=== PATIENT | male | born 1960 | race Caucasian/White ===

== ENCOUNTER 2017-06-04 12:05 | Inpatient (IN) ==
[2017-06-04 14:09] LABS: Basophils # 0.1 10*3/uL (0.0-0.2); Basophils % 0.7 % (0.0-0.8); Eosinophils # 0.2 10*3/uL (0.0-0.87); Eosinophils % 2.2 % (0.00-10.9); Hematocrit 48.2 VOL% (42.0-52.0); Hemoglobin 16.3 GM/DL (14.0-18.0); Immature Granulocytes % 1.2 %; Immature Granulocytes Absolute 0.12 #; Lymphocytes # 1.5 10*3/uL (1.4-4.0); Lymphocytes % 14.7 % (21.2-54.2); Mean Corpuscular HGB Conc 33.8 GM/DL (32-36); Mean Corpuscular Hemoglobin 32 PG (27-34); Mean Corpuscular Volume 94.7 FL (87-102); Mean Platelet Volume 10.6 FL (9.6-12.0); Monocytes # 0.7 10*3/uL (0.11-0.8); Monocytes % 7.2 % (1.7-12.7); Neutrophils # 7.3 10*3/uL (1.4-7.4); Platelet Count 200 T/CUMM (130-400); Red Blood Count 5.09 MC/CUMM (3.8-5.5); Red Cell Distribution Width 14.3 % (9.3-17.3); White Blood Count 9.9 T/CUMM (4-12)
[2017-06-04 14:16] LABS: INR 0.9; PT Patient Result 9.9 SECS; Partial Thromboplastin Time 24.2 SECS (0-40)
[2017-06-04 14:25] LABS: Alanine Aminotransferase 48 U/L (16-61); Albumin 3.4 G/DL (3.4-5.0); Alkaline Phosphatase 90 U/L (45-117); Aspartate Amino Transferase 35 U/L (0-37); Bilirubin,Total < 0.39 MG/DL (0.2-1.0); Blood Urea Nitrogen 15 MG/DL (7-18); Calcium 8.9 MG/DL (8.5-10.1); Glucose 107 MG/DL (74-106); Magnesium 2.4 MG/DL (1.8-2.4); Osmolality,Calculated 277.5 MOS/KG (273-304); Potassium 4.5 MMOL/L (3.5-5.1); Sodium 139 MMOL/L (136-145); Total Protein 6.9 G/DL (6.4-8.3); Troponin I Only 0.034 NG/ML (0.00-0.045)
[2017-06-04] MEDS ORDERED: FUROSEMIDE 40 MG/4 ML VIAL IV STA (15:10)
[2017-06-04] MEDS ORDERED: FUROSEMIDE 100 MG/10 ML VIAL ONE (15:12)
[2017-06-04] MEDS ORDERED: NICOTINE 21 MG/24 HR PATCH TRANSDERM PRN (15:19)
[2017-06-04] MEDS ORDERED: guaiFENesin/DM ER 600-30 MG TABLET PO PRN (15:19)
[2017-06-04] MEDS ORDERED: NITROGLYCERIN SL 0.4 MG TABLET SL PRN (15:24)
[2017-06-04] MEDS ORDERED: INFLUENZA VIRUS VACCINE 0.5 ML SYRINGE IM ONE (17:33)
[2017-06-04] MEDS ORDERED: PNEUMOCOCCAL VACCINE (23 VALENT) 0.5 ML VIAL IM ONE (17:33)
[2017-06-04] MEDS: ENOXAPARIN 40 MG/0.4 ML SYRINGE SUBCUT SCH (17:42)
[2017-06-04] MEDS: FUROSEMIDE 40 MG/4 ML VIAL IV SCH (21:48)
[2017-06-05] MEDS: ONDANSETRON 4 MG/2 ML VIAL IV PRN ×2 (01:39→07:10)
[2017-06-05 05:55] LABS: Calcium 8.4 MG/DL (8.5-10.1); Magnesium 2.3 MG/DL (1.8-2.4); Osmolality,Calculated 276.8 MOS/KG (273-304); Potassium 3.9 MMOL/L (3.5-5.1)
[2017-06-05] MEDS: metOLazone 5 MG TABLET PO SCH (08:42)
[2017-06-05] MEDS: SIMVASTATIN 20 MG TABLET PO SCH (08:42)
[2017-06-05] MEDS: FUROSEMIDE 40 MG/4 ML VIAL IV SCH ×2 (08:42→21:50)
[2017-06-05] MEDS: ASPIRIN EC 81 MG TABLET PO SCH (08:42)
[2017-06-05] MEDS: METOPROLOL SUCCINATE XL 50 MG TABLET PO SCH (08:42)
[2017-06-05] MEDS: ACETAMINOPHEN 325 MG TABLET PO PRN ×2 (08:42→23:54)
[2017-06-05] MEDS: MULTIVITAMIN (CENTRUM) TABLET PO SCH (08:42)
[2017-06-05] MEDS: predniSONE 20 MG TABLET PO SCH (08:42)
[2017-06-05] MEDS ORDERED: LISINOPRIL 5 MG TABLET PO SCH (09:00)
[2017-06-05] MEDS: ENOXAPARIN 40 MG/0.4 ML SYRINGE SUBCUT SCH (14:47)
[2017-06-05] MEDS: ALBUTEROL 2.5 MG/3 ML NEB RESP TX PRN ×2 (14:52→23:56)
[2017-06-06] MEDS: ONDANSETRON 4 MG/2 ML VIAL IV PRN (02:12)
[2017-06-06] MEDS: SIMVASTATIN 20 MG TABLET PO SCH (09:45)
[2017-06-06] MEDS: ASPIRIN EC 81 MG TABLET PO SCH (09:45)
[2017-06-06] MEDS: MULTIVITAMIN (CENTRUM) TABLET PO SCH (09:45)
[2017-06-06] MEDS: predniSONE 20 MG TABLET PO SCH (09:45)
[2017-06-06] MEDS: METOPROLOL SUCCINATE XL 50 MG TABLET PO SCH (09:45)
[2017-06-06] MEDS: metOLazone 5 MG TABLET PO SCH (09:46)
[2017-06-06] MEDS: FUROSEMIDE 40 MG/4 ML VIAL IV SCH (09:46)
[2017-06-06] MEDS: LISINOPRIL 5 MG TABLET PO SCH ×2 (09:46→23:09)
[2017-06-06] MEDS: ENOXAPARIN 40 MG/0.4 ML SYRINGE SUBCUT SCH (16:31)
[2017-06-06] MEDS ORDERED: FUROSEMIDE 40 MG/4 ML VIAL IV SCH (23:30)
[2017-06-07] MEDS: FUROSEMIDE 40 MG/4 ML VIAL IV SCH ×3 (00:07→15:57)
[2017-06-07 06:20] LABS: Calcium 8.4 MG/DL (8.5-10.1); Osmolality,Calculated 269.7 MOS/KG (273-304); Potassium 3.9 MMOL/L (3.5-5.1)
[2017-06-07] MEDS: LISINOPRIL 5 MG TABLET PO SCH ×2 (08:53→21:29)
[2017-06-07] MEDS: METOPROLOL SUCCINATE XL 50 MG TABLET PO SCH (08:53)
[2017-06-07] MEDS: ASPIRIN EC 81 MG TABLET PO SCH (08:53)
[2017-06-07] MEDS: SIMVASTATIN 20 MG TABLET PO SCH (08:59)
[2017-06-07] MEDS: MULTIVITAMIN (CENTRUM) TABLET PO SCH (08:59)
[2017-06-07] MEDS: predniSONE 20 MG TABLET PO SCH (08:59)
[2017-06-07] MEDS ORDERED: metOLazone 5 MG TABLET PO SCH (09:00)
[2017-06-07] MEDS: ENOXAPARIN 40 MG/0.4 ML SYRINGE SUBCUT SCH (15:58)
[2017-06-08] MEDS ORDERED: ACETAMINOPHEN/diphenhydrAMINE 500-25 MG TABLET PO PRN (00:27)
[2017-06-08 05:21] LABS: Calcium 8.7 MG/DL (8.5-10.1); Osmolality,Calculated 274.4 MOS/KG (273-304); Potassium 3.9 MMOL/L (3.5-5.1)
[2017-06-08] MEDS ORDERED: BUMETANIDE 1 MG TABLET PO SCH (08:00)
[2017-06-08] MEDS: METOPROLOL SUCCINATE XL 50 MG TABLET PO SCH (08:05)
[2017-06-08] MEDS: MULTIVITAMIN (CENTRUM) TABLET PO SCH (08:05)
[2017-06-08] MEDS: predniSONE 20 MG TABLET PO SCH (08:05)
[2017-06-08] MEDS: ASPIRIN EC 81 MG TABLET PO SCH (08:06)
[2017-06-08] MEDS: LISINOPRIL 5 MG TABLET PO SCH (08:06)
[2017-06-08] MEDS: SIMVASTATIN 20 MG TABLET PO SCH (08:06)
[2017-06-08] MEDS ORDERED: metOLazone 5 MG TABLET PO SCH (09:00)
[2017-06-08 11:40] VITALS: BP 110/70
== END 2017-06-08 11:14 | disposition home or self-care (01) | DRG 190 ==
LOC: N.ED 12:05 → N.EDINP 14:43 → N.5E 16:52
PROVIDERS: ADMIT Internal Medicine Geriatric Medicine; ATTEND Internal Medicine Geriatric Medicine

== ENCOUNTER 2018-05-24 08:29 | Inpatient (IN) ==
[2018-05-24] MEDS ORDERED: ASPIRIN 325 MG TABLET PO STA (09:14)
[2018-05-24] MEDS ORDERED: ALBUTEROL 2.5 MG/3 ML NEB RESP TX STA ×2 (09:15→12:01)
[2018-05-24 09:20] LABS: Basophils % 0.4 % (0.0-0.8); Eosinophils % 0.3 % (0.00-10.9); Hematocrit 51.8 VOL% (42.0-52.0); Hemoglobin 16.5 GM/DL (14.0-18.0); Immature Granulocytes % 0.5 %; Immature Granulocytes Absolute 0.05 #; Lymphocytes # 0.9 10*3/uL (1.4-4.0); Lymphocytes % 9.5 % (21.2-54.2); Mean Corpuscular HGB Conc 31.9 GM/DL (32-36); Mean Corpuscular Hemoglobin 31 PG (27-34); Mean Corpuscular Volume 98.5 FL (87-102); Mean Platelet Volume 10.6 FL (9.6-12.0); Monocytes % 9.8 % (1.7-12.7); NRBC # 0.02 10*3/uL; Neutrophils # 7.8 10*3/uL (1.4-7.4); Neutrophils % 79.5 % (38.7-73.9); Platelet Count 175 T/CUMM (130-400); Red Blood Count 5.26 MC/CUMM (3.8-5.5); Red Cell Distribution Width 15.8 % (9.3-17.3); White Blood Count 9.9 T/CUMM (4-12)
[2018-05-24 09:35] LABS: Albumin 3.5 G/DL (3.4-5.0); Bilirubin,Total 0.5 MG/DL (0.2-1.0); Calcium 9.5 MG/DL (8.5-10.1); Osmolality,Calculated 283.4 MOS/KG (273-304); Potassium 3.7 MMOL/L (3.5-5.1); Total Protein 7.5 G/DL (6.4-8.3)
[2018-05-24] MEDS: NITROGLYCERIN SL 0.4 MG TABLET SL PRN ×2 (11:41→12:18)
[2018-05-24] MEDS ORDERED: NITROGLYCERIN SL 0.4 MG TABLET SL PRN (13:15)
[2018-05-24] MEDS ORDERED: ONDANSETRON 4 MG/2 ML VIAL IV PRN (13:19)
[2018-05-24] MEDS ORDERED: predniSONE 20 MG TABLET PO SCH (13:30)
[2018-05-24] MEDS: ALBUTEROL/IPRATROPIUM 3 ML NEB RESP TX SCH ×3 (14:07→22:43)
[2018-05-24] MEDS ORDERED: INFLUENZA VIRUS VACCINE 0.5 ML SYRINGE IM ONE (16:26)
[2018-05-24] MEDS: ENOXAPARIN 40 MG/0.4 ML SYRINGE SUBCUT SCH (16:27)
[2018-05-24] MEDS: LEVOFLOXACIN INJ 500 MG in PREMIX 1 EACH IV SCH (16:27)
[2018-05-24] MEDS: FUROSEMIDE 40 MG TABLET PO SCH (16:27)
[2018-05-24] MEDS: ALBUTEROL 0.4 MG/ML 30 ML/BOTTLE PO SCH ×2 (18:43→21:11)
[2018-05-24] MEDS: ACETAMINOPHEN 325 MG TABLET PO PRN (21:10)
[2018-05-24] MEDS: LISINOPRIL 5 MG TABLET PO SCH (21:10)
[2018-05-24] MEDS: MELATONIN 3 MG TABLET PO SCH (21:12)
[2018-05-25] MEDS: ALBUTEROL 0.4 MG/ML 30 ML/BOTTLE PO SCH ×6 (01:03→21:05)
[2018-05-25] MEDS: ALBUTEROL/IPRATROPIUM 3 ML NEB RESP TX SCH ×6 (02:32→23:15)
[2018-05-25 05:35] LABS: Basophils % 0.5 % (0.0-0.8); Eosinophils # 0.1 10*3/uL (0.0-0.87); Hematocrit 51.4 VOL% (42.0-52.0); Hemoglobin 15.8 GM/DL (14.0-18.0); Immature Granulocytes % 0.6 %; Immature Granulocytes Absolute 0.05 #; Lymphocytes # 1.3 10*3/uL (1.4-4.0); Lymphocytes % 14.6 % (21.2-54.2); Mean Corpuscular HGB Conc 30.7 GM/DL (32-36); Mean Corpuscular Hemoglobin 31 PG (27-34); Mean Platelet Volume 10.3 FL (9.6-12.0); Monocytes # 1.2 10*3/uL (0.11-0.8); Monocytes % 13.2 % (1.7-12.7); Neutrophils # 6.2 10*3/uL (1.4-7.4); Neutrophils % 70.1 % (38.7-73.9); Platelet Count 147 T/CUMM (130-400); Red Blood Count 5.04 MC/CUMM (3.8-5.5); Red Cell Distribution Width 15.9 % (9.3-17.3); White Blood Count 8.8 T/CUMM (4-12)
[2018-05-25] MEDS: ACETAMINOPHEN 325 MG TABLET PO PRN ×2 (05:51→12:09)
[2018-05-25 06:01] LABS: Calcium 8.4 MG/DL (8.5-10.1); Osmolality,Calculated 283.7 MOS/KG (273-304)
[2018-05-25] MEDS: PANTOPRAZOLE 40 MG TABLET PO SCH (08:50)
[2018-05-25] MEDS: POTASSIUM CHLORIDE 20 MEQ TABLET PO SCH (08:50)
[2018-05-25] MEDS: ASPIRIN EC 81 MG TABLET PO SCH (08:50)
[2018-05-25] MEDS: FUROSEMIDE 40 MG TABLET PO SCH ×2 (08:50→15:57)
[2018-05-25] MEDS: LISINOPRIL 5 MG TABLET PO SCH ×2 (08:50→21:05)
[2018-05-25] MEDS: METOPROLOL SUCCINATE XL 50 MG TABLET PO SCH (08:50)
[2018-05-25] MEDS: metOLazone 5 MG TABLET PO SCH (08:51)
[2018-05-25] MEDS: NICOTINE 14 MG/24 HR PATCH TRANSDERM SCH (08:51)
[2018-05-25] MEDS: ROSUVASTATIN 20 MG TABLET PO SCH (08:51)
[2018-05-25] MEDS ORDERED: SIMVASTATIN 20 MG TABLET PO SCH (09:00)
[2018-05-25] MEDS ORDERED: POTASSIUM CHLORIDE 20 MEQ TABLET PO ONE (09:10)
[2018-05-25] MEDS: methylPREDNISolone SOD SUC 40 MG/1 ML VIAL IV SCH ×2 (11:59→23:28)
[2018-05-25 12:11] LABS: ABG Base Excess 9.1 MMOL/L (-2.5-2.5); ABG HCO3 32.7 MMOL/L (20-26); ABG Oxygen Saturation 90.4 % (95-100); ABG PH 7.351 (7.35-7.45); ABG PO2 62.9 MM HG (80-95); ABG TCO2 32.9 MMOL/L (23-27)
[2018-05-25 12:16] LABS: ABG PCO2 70.2 MM HG (35-48)
[2018-05-25] MEDS: ENOXAPARIN 40 MG/0.4 ML SYRINGE SUBCUT SCH (13:11)
[2018-05-25] MEDS: LEVOFLOXACIN INJ 500 MG in PREMIX 1 EACH IV SCH (13:14)
[2018-05-25] MEDS: MELATONIN 3 MG TABLET PO SCH (21:05)
[2018-05-26] MEDS: ALBUTEROL 0.4 MG/ML 30 ML/BOTTLE PO SCH ×6 (01:50→21:15)
[2018-05-26] MEDS: ALBUTEROL/IPRATROPIUM 3 ML NEB RESP TX SCH ×6 (02:35→23:41)
[2018-05-26] MEDS: ASPIRIN EC 81 MG TABLET PO SCH (09:13)
[2018-05-26] MEDS: POTASSIUM CHLORIDE 20 MEQ TABLET PO SCH ×2 (09:13→21:16)
[2018-05-26] MEDS: FUROSEMIDE 40 MG TABLET PO SCH ×2 (09:13→15:17)
[2018-05-26] MEDS: ROSUVASTATIN 20 MG TABLET PO SCH (09:13)
[2018-05-26] MEDS: LISINOPRIL 5 MG TABLET PO SCH ×2 (09:14→21:15)
[2018-05-26] MEDS: metOLazone 5 MG TABLET PO SCH (09:14)
[2018-05-26] MEDS: NICOTINE 14 MG/24 HR PATCH TRANSDERM SCH (09:14)
[2018-05-26] MEDS: METOPROLOL SUCCINATE XL 50 MG TABLET PO SCH (09:14)
[2018-05-26] MEDS: PANTOPRAZOLE 40 MG TABLET PO SCH (09:16)
[2018-05-26] MEDS ORDERED: methylPREDNISolone SOD SUC 40 MG/1 ML VIAL IV SCH (11:00)
[2018-05-26] MEDS: ENOXAPARIN 40 MG/0.4 ML SYRINGE SUBCUT SCH (13:43)
[2018-05-26] MEDS: LEVOFLOXACIN INJ 500 MG in PREMIX 1 EACH IV SCH (13:43)
[2018-05-26] MEDS: MELATONIN 3 MG TABLET PO SCH (21:16)
[2018-05-27 02:25] LABS: ABG Base Excess 9.3 MMOL/L (-2.5-2.5); ABG Oxygen Saturation 61.6 % (95-100); ABG PH 7.296 (7.35-7.45); ABG TCO2 35.7 MMOL/L (23-27)
[2018-05-27 02:28] LABS: ABG PCO2 84.4 MM HG (35-48); ABG PO2 35.8 MM HG (80-95)
[2018-05-27 02:43] LABS: Calcium 7.7 MG/DL (8.5-10.1); Potassium 3.5 MMOL/L (3.5-5.1)
[2018-05-27] MEDS ORDERED: CLORAZEPATE 7.5 MG TABLET PO ONE (03:17)
[2018-05-27] MEDS ORDERED: ZIPRASIDONE 20 MG/1 ML VIAL IM ONE (03:23)
[2018-05-27] MEDS ORDERED: ETOMIDATE 20 MG/10 ML VIAL IV ONE ×4 (03:43→04:54)
[2018-05-27] MEDS ORDERED: SUCCINYLCHOLINE 200 MG/10 ML VIAL ONE (03:44)
[2018-05-27] MEDS ORDERED: VECURONIUM 10 MG VIAL IV ONE ×3 (03:44→06:10)
[2018-05-27 03:46] LABS: Basophils % 0.1 % (0.0-0.8); Eosinophils % 0.1 % (0.00-10.9); Hematocrit 47.4 VOL% (42.0-52.0); Hemoglobin 14.9 GM/DL (14.0-18.0); Immature Granulocytes % 0.8 %; Immature Granulocytes Absolute 0.11 #; Lymphocytes # 1.8 10*3/uL (1.4-4.0); Lymphocytes % 12.7 % (21.2-54.2); Mean Corpuscular HGB Conc 31.4 GM/DL (32-36); Mean Corpuscular Hemoglobin 32 PG (27-34); Mean Corpuscular Volume 101.9 FL (87-102); Mean Platelet Volume 11.4 FL (9.6-12.0); Monocytes # 1.9 10*3/uL (0.11-0.8); Monocytes % 13.4 % (1.7-12.7); Neutrophils # 10.2 10*3/uL (1.4-7.4); Neutrophils % 72.9 % (38.7-73.9); Platelet Count 151 T/CUMM (130-400); Red Blood Count 4.65 MC/CUMM (3.8-5.5)
[2018-05-27] MEDS ORDERED: PROPOFOL 200 MG/20 ML VIAL IV ONE (04:08)
[2018-05-27] MEDS ORDERED: PROPOFOL 1,000 MG/100 ML BOTTLE IV ONE (04:09)
[2018-05-27 04:10] LABS: Calcium 8.1 MG/DL (8.5-10.1); Osmolality,Calculated 277.2 MOS/KG (273-304); Potassium 3.8 MMOL/L (3.5-5.1)
[2018-05-27] MEDS: PROPOFOL 1,000 MG/100 ML BOTTLE IV SCH ×2 (04:30→19:04)
[2018-05-27] MEDS: ALBUTEROL/IPRATROPIUM 3 ML NEB RESP TX SCH ×4 (04:36→19:17)
[2018-05-27] MEDS ORDERED: MIDAZOLAM 100 MG in SODIUM CHLORIDE 0.9% 80 ML IV PRN (05:23)
[2018-05-27 05:37] LABS: ABG Base Excess 7.2 MMOL/L (-2.5-2.5); ABG HCO3 30.9 MMOL/L (20-26); ABG Oxygen Saturation 92.7 % (95-100); ABG PH 7.213 (7.35-7.45); ABG TCO2 36.4 MMOL/L (23-27); Pt O2 Delivery Device Ventilator
[2018-05-27] MEDS: ALBUTEROL 0.4 MG/ML 30 ML/BOTTLE PO SCH ×6 (05:54→21:26)
[2018-05-27] MEDS: PHENYLEPHRINE DRIP 40 MG/250 ML PREMIX IV PRN ×4 (06:10→21:18)
[2018-05-27] MEDS ORDERED: MORPHINE 4 MG/1 ML VIAL ONE (06:17)
[2018-05-27] MEDS ORDERED: LORazepam 2 MG/1 ML VIAL ONE (06:17)
[2018-05-27] MEDS ORDERED: MIDAZOLAM 2 MG/2 ML VIAL IV ONE (06:28)
[2018-05-27] MEDS ORDERED: LIDOCAINE 2% 20 ML VIAL RESP TX ONE (06:28)
[2018-05-27] MEDS ORDERED: LIDOCAINE 1% 20 ML VIAL MISC INJ ONE (06:28)
[2018-05-27] MEDS ORDERED: PHENYLEPHRINE DRIP 40 MG/250 ML PREMIX IV ONE (06:32)
[2018-05-27 06:35] LABS: ABG Base Excess 8.9 MMOL/L (-2.5-2.5); ABG HCO3 32.5 MMOL/L (20-26); ABG Oxygen Saturation 94.6 % (95-100); ABG PH 7.317 (7.35-7.45); ABG PO2 77.9 MM HG (80-95); ABG TCO2 33.9 MMOL/L (23-27); Pt O2 Delivery Device Ventilator
[2018-05-27 06:37] LABS: ABG PCO2 76.9 MM HG (35-48)
[2018-05-27] MEDS ORDERED: SODIUM CHLORIDE 0.9% 500 ML IV ONE (06:45)
[2018-05-27] MEDS ORDERED: LORazepam 2 MG/1 ML VIAL IV ONE (06:51)
[2018-05-27] MEDS ORDERED: PHENYLEPHRINE 50 MG/5 ML VIAL IV ONE (06:51)
[2018-05-27] MEDS ORDERED: MORPHINE 4 MG/1 ML VIAL IV ONE (06:51)
[2018-05-27 07:40] LABS: CKMB % 0.7 %
[2018-05-27 07:41] LABS: Troponin I 0.193 NG/ML (0.00-0.045)
[2018-05-27] MEDS ORDERED: PIPERACILLIN/TAZOBACTAM 4,500 MG in SODIUM CHLORIDE 0.9% 100 ML IV SCH (08:00)
[2018-05-27] MEDS: LORazepam 2 MG/1 ML VIAL IV PRN (08:22)
[2018-05-27] MEDS: MORPHINE 4 MG/1 ML VIAL IV PRN (08:22)
[2018-05-27 09:06] LABS: ABG Base Excess 7.9 MMOL/L (-2.5-2.5); ABG HCO3 31.6 MMOL/L (20-26); ABG Oxygen Saturation 98.8 % (95-100); ABG PH 7.313 (7.35-7.45); ABG TCO2 32.9 MMOL/L (23-27); Allen Test Positive; Pt O2 Delivery Device Ventilator
[2018-05-27 09:08] LABS: ABG PCO2 75.1 MM HG (35-48)
[2018-05-27] MEDS: ROSUVASTATIN 20 MG TABLET PO SCH (10:21)
[2018-05-27] MEDS: PANTOPRAZOLE 40 MG TABLET PO SCH (10:21)
[2018-05-27] MEDS: POTASSIUM CHLORIDE 20 MEQ TABLET PO SCH ×2 (10:21→21:23)
[2018-05-27] MEDS: ASPIRIN EC 81 MG TABLET PO SCH (10:22)
[2018-05-27] MEDS: methylPREDNISolone SOD SUC 40 MG/1 ML VIAL IV SCH ×3 (10:22→21:24)
[2018-05-27] MEDS: NICOTINE 14 MG/24 HR PATCH TRANSDERM SCH (10:23)
[2018-05-27] MEDS: PIPERACILLIN/TAZOBACTAM 3,375 MG in SODIUM CHLORIDE 0.9% 100 ML IV SCH ×2 (10:33→21:26)
[2018-05-27] MEDS: METOPROLOL SUCCINATE XL 50 MG TABLET PO SCH (11:24)
[2018-05-27] MEDS: LISINOPRIL 5 MG TABLET PO SCH ×2 (11:24→21:28)
[2018-05-27] MEDS: ISOSORBIDE DINITRATE 10 MG TABLET PO SCH ×3 (11:30→21:23)
[2018-05-27] MEDS: ACETYLCYSTEINE 20% 800 MG/4 ML VIAL RESP TX SCH ×2 (12:25→19:17)
[2018-05-27] MEDS: ENOXAPARIN 40 MG/0.4 ML SYRINGE SUBCUT SCH (14:32)
[2018-05-27] MEDS: LEVOFLOXACIN INJ 500 MG in PREMIX 1 EACH IV SCH (14:32)
[2018-05-27 14:37] LABS: Amorphous Crystals,Urine Occasional /HPF (Few); Apearance,Urine CLOUDY (Clear); Bilirubin,Urine Negative (Negative); Blood, Urine Moderate mg/dL (Negative); Glucose,Urine (UA) Negative (Negative); Ketones,Urine Negative (Negative); Nitrite,Urine Negative (Negative); Protein,Urine Negative; Urine Color Yellow (Yellow); Urine Specific Gravity 1.016 (1.001-1.035); Urine Urobilinogen < 2.0 EU/DL (0.2-1.0); WBC,Urine 9 /HPF (0-6)
[2018-05-27] MEDS: fentaNYL INJ 1,250 MCG in SODIUM CHLORIDE 0.9% 225 ML IV PRN (20:56)
[2018-05-27] MEDS: MELATONIN 3 MG TABLET PO SCH (21:28)
[2018-05-27] MEDS ORDERED: GLUCAGON 1 MG VIAL IM PRN (23:03)
[2018-05-27] MEDS ORDERED: DEXTROSE 50% 25 GM/50 ML VIAL IV PRN (23:03)
[2018-05-28] MEDS: INSULIN REGULAR 100 UNIT/ML SUBCUT SCH ×5 (00:14→23:51)
[2018-05-28] MEDS: ALBUTEROL/IPRATROPIUM 3 ML NEB RESP TX SCH ×4 (00:14→18:56)
[2018-05-28] MEDS: ACETYLCYSTEINE 20% 800 MG/4 ML VIAL RESP TX SCH ×4 (00:15→18:53)
[2018-05-28] MEDS: PHENYLEPHRINE DRIP 40 MG/250 ML PREMIX IV PRN ×5 (01:08→21:52)
[2018-05-28] MEDS: methylPREDNISolone SOD SUC 40 MG/1 ML VIAL IV SCH ×4 (02:35→21:40)
[2018-05-28] MEDS: ALBUTEROL 0.4 MG/ML 30 ML/BOTTLE PO SCH ×6 (02:35→21:47)
[2018-05-28 03:13] LABS: Basophils % 0.1 % (0.0-0.8); Hematocrit 46.3 VOL% (42.0-52.0); Hemoglobin 14.6 GM/DL (14.0-18.0); Immature Granulocytes % 0.6 %; Immature Granulocytes Absolute 0.07 #; Lymphocytes % 8.1 % (21.2-54.2); Mean Corpuscular HGB Conc 31.5 GM/DL (32-36); Mean Corpuscular Hemoglobin 31 PG (27-34); Mean Corpuscular Volume 99.4 FL (87-102); Mean Platelet Volume 10.2 FL (9.6-12.0); Monocytes # 1.1 10*3/uL (0.11-0.8); Monocytes % 9.1 % (1.7-12.7); Neutrophils # 10.1 10*3/uL (1.4-7.4); Neutrophils % 82.1 % (38.7-73.9); Platelet Count 173 T/CUMM (130-400); Red Blood Count 4.66 MC/CUMM (3.8-5.5); Red Cell Distribution Width 16.3 % (9.3-17.3); White Blood Count 12.3 T/CUMM (4-12)
[2018-05-28] MEDS: PROPOFOL 1,000 MG/100 ML BOTTLE IV SCH ×5 (03:38→20:45)
[2018-05-28 03:50] LABS: Osmolality,Calculated 284.7 MOS/KG (273-304); Potassium 3.5 MMOL/L (3.5-5.1)
[2018-05-28] MEDS: fentaNYL INJ 1,250 MCG in SODIUM CHLORIDE 0.9% 225 ML IV PRN ×3 (03:52→22:33)
[2018-05-28 04:27] LABS: ABG Base Excess 12.6 MMOL/L (-2.5-2.5); ABG HCO3 39.8 MMOL/L (20-26); ABG Oxygen Saturation 95.7 % (95-100); ABG PCO2 60.5 MM HG (35-48); ABG PH 7.436 (7.35-7.45); ABG PO2 80.2 MM HG (80-95); ABG TCO2 41.7 MMOL/L (23-27); Pt O2 Delivery Device Ventilator
[2018-05-28] MEDS: PIPERACILLIN/TAZOBACTAM 3,375 MG in SODIUM CHLORIDE 0.9% 100 ML IV SCH ×3 (05:27→21:45)
[2018-05-28] MEDS ORDERED: POTASSIUM CHLORIDE 20 MEQ/15 ML UDCUP PER TUBE PRN (07:07)
[2018-05-28] MEDS: ROSUVASTATIN 20 MG TABLET PO SCH (08:30)
[2018-05-28] MEDS: POTASSIUM CHLORIDE 20 MEQ TABLET PO SCH ×2 (08:30→21:36)
[2018-05-28] MEDS: ISOSORBIDE DINITRATE 10 MG TABLET PO SCH ×3 (08:30→21:36)
[2018-05-28] MEDS: ASPIRIN EC 81 MG TABLET PO SCH (08:30)
[2018-05-28] MEDS: CLINDAMYCIN INJ 900 MG in PREMIX 1 EACH IV SCH ×3 (08:30→23:50)
[2018-05-28] MEDS: NICOTINE 14 MG/24 HR PATCH TRANSDERM SCH (14:23)
[2018-05-28] MEDS: PANTOPRAZOLE 40 MG TABLET PO SCH (14:24)
[2018-05-28] MEDS: LISINOPRIL 5 MG TABLET PO SCH ×2 (14:24→21:37)
[2018-05-28] MEDS: METOPROLOL SUCCINATE XL 50 MG TABLET PO SCH (14:25)
[2018-05-28] MEDS: LEVOFLOXACIN INJ 500 MG in PREMIX 1 EACH IV SCH (15:17)
[2018-05-28] MEDS: ENOXAPARIN 40 MG/0.4 ML SYRINGE SUBCUT SCH (15:17)
[2018-05-28] MEDS: DORNASE ALFA 2.5 MG/2.5 ML VIAL RESP TX SCH (18:53)
[2018-05-28] MEDS: PANTOPRAZOLE 40 MG VIAL IV SCH (21:37)
[2018-05-28] MEDS: MELATONIN 3 MG TABLET PO SCH (21:37)
[2018-05-29] MEDS: PROPOFOL 1,000 MG/100 ML BOTTLE IV SCH ×7 (01:00→22:00)
[2018-05-29] MEDS: ACETYLCYSTEINE 20% 800 MG/4 ML VIAL RESP TX SCH ×4 (01:48→20:07)
[2018-05-29] MEDS: ALBUTEROL/IPRATROPIUM 3 ML NEB RESP TX SCH ×4 (01:48→20:07)
[2018-05-29] MEDS: ALBUTEROL 0.4 MG/ML 30 ML/BOTTLE PO SCH ×6 (02:23→23:02)
[2018-05-29] MEDS: methylPREDNISolone SOD SUC 40 MG/1 ML VIAL IV SCH ×4 (03:07→20:25)
[2018-05-29 03:54] LABS: ABG Base Excess 10.8 MMOL/L (-2.5-2.5); ABG HCO3 34.4 MMOL/L (20-26); ABG Oxygen Saturation 93.1 % (95-100); ABG PCO2 61.3 MM HG (35-48); ABG PH 7.408 (7.35-7.45); Pt O2 Delivery Device Ventilator
[2018-05-29 04:48] LABS: Basophils % 0.1 % (0.0-0.8); Hematocrit 45.4 VOL% (42.0-52.0); Immature Granulocytes % 0.7 %; Immature Granulocytes Absolute 0.09 #; Lymphocytes # 0.7 10*3/uL (1.4-4.0); Lymphocytes % 5.2 % (21.2-54.2); Mean Corpuscular HGB Conc 30.8 GM/DL (32-36); Mean Corpuscular Hemoglobin 31 PG (27-34); Mean Platelet Volume 10.2 FL (9.6-12.0); Monocytes # 1.1 10*3/uL (0.11-0.8); Monocytes % 8.6 % (1.7-12.7); Neutrophils # 10.8 10*3/uL (1.4-7.4); Neutrophils % 85.4 % (38.7-73.9); Platelet Count 150 T/CUMM (130-400); Red Blood Count 4.54 MC/CUMM (3.8-5.5); Red Cell Distribution Width 16.2 % (9.3-17.3); White Blood Count 12.6 T/CUMM (4-12)
[2018-05-29 05:11] LABS: Calcium 8.3 MG/DL (8.5-10.1); Osmolality,Calculated 283.7 MOS/KG (273-304)
[2018-05-29] MEDS: PIPERACILLIN/TAZOBACTAM 3,375 MG in SODIUM CHLORIDE 0.9% 100 ML IV SCH ×3 (05:52→20:25)
[2018-05-29] MEDS: INSULIN REGULAR 100 UNIT/ML SUBCUT SCH ×3 (05:53→18:13)
[2018-05-29] MEDS: DORNASE ALFA 2.5 MG/2.5 ML VIAL RESP TX SCH ×2 (07:42→20:07)
[2018-05-29] MEDS ORDERED: DEXTROSE 50% 25 GM/50 ML VIAL IV PRN (08:20)
[2018-05-29] MEDS ORDERED: GLUCAGON 1 MG VIAL IM PRN (08:20)
[2018-05-29 08:32] LABS: ABG HCO3 34.6 MMOL/L (20-26); ABG PCO2 60.1 MM HG (35-48); ABG PH 7.416 (7.35-7.45); ABG PO2 62.9 MM HG (80-95); ABG TCO2 33.1 MMOL/L (23-27); Allen Test Positive; Pt O2 Delivery Device Ventilator
[2018-05-29] MEDS: ROSUVASTATIN 20 MG TABLET PO SCH (09:06)
[2018-05-29] MEDS: POTASSIUM CHLORIDE 20 MEQ TABLET PO SCH ×2 (09:06→20:41)
[2018-05-29] MEDS: NICOTINE 14 MG/24 HR PATCH TRANSDERM SCH (09:06)
[2018-05-29] MEDS: ASPIRIN EC 81 MG TABLET PO SCH (09:07)
[2018-05-29] MEDS: ISOSORBIDE DINITRATE 10 MG TABLET PO SCH ×3 (09:07→20:25)
[2018-05-29] MEDS: PANTOPRAZOLE 40 MG VIAL IV SCH (09:07)
[2018-05-29] MEDS: CLINDAMYCIN INJ 900 MG in PREMIX 1 EACH IV SCH ×2 (09:13→18:26)
[2018-05-29] MEDS: LEVOFLOXACIN INJ 500 MG in PREMIX 1 EACH IV SCH (14:21)
[2018-05-29] MEDS: ENOXAPARIN 40 MG/0.4 ML SYRINGE SUBCUT SCH (14:25)
[2018-05-29] MEDS: fentaNYL INJ 1,250 MCG in SODIUM CHLORIDE 0.9% 225 ML IV PRN (16:36)
[2018-05-29] MEDS: MELATONIN 3 MG TABLET PO SCH (20:25)
[2018-05-30] MEDS: INSULIN REGULAR 100 UNIT/ML SUBCUT SCH ×4 (00:33→18:22)
[2018-05-30] MEDS: PROPOFOL 1,000 MG/100 ML BOTTLE IV SCH ×11 (00:34→21:55)
[2018-05-30] MEDS: ALBUTEROL/IPRATROPIUM 3 ML NEB RESP TX SCH ×4 (01:30→19:27)
[2018-05-30] MEDS: ACETYLCYSTEINE 20% 800 MG/4 ML VIAL RESP TX SCH ×4 (01:30→19:27)
[2018-05-30] MEDS: CLINDAMYCIN INJ 900 MG in PREMIX 1 EACH IV SCH ×3 (01:43→16:19)
[2018-05-30] MEDS: ALBUTEROL 0.4 MG/ML 30 ML/BOTTLE PO SCH ×6 (02:16→22:20)
[2018-05-30 03:11] LABS: ABG Base Excess 12.9 MMOL/L (-2.5-2.5); ABG HCO3 39.3 MMOL/L (20-26); ABG Oxygen Saturation 91.9 % (95-100); ABG PCO2 57.3 MM HG (35-48); ABG PH 7.454 (7.35-7.45); ABG PO2 65.4 MM HG (80-95); ABG TCO2 41.1 MMOL/L (23-27); Allen Test Positive; Pt O2 Delivery Device Ventilator
[2018-05-30] MEDS: fentaNYL INJ 1,250 MCG in SODIUM CHLORIDE 0.9% 225 ML IV PRN ×2 (05:20→15:21)
[2018-05-30] MEDS: methylPREDNISolone SOD SUC 40 MG/1 ML VIAL IV SCH ×4 (05:26→22:06)
[2018-05-30] MEDS: PIPERACILLIN/TAZOBACTAM 3,375 MG in SODIUM CHLORIDE 0.9% 100 ML IV SCH ×3 (05:26→21:55)
[2018-05-30 05:33] LABS: Basophils % 0.1 % (0.0-0.8); Hematocrit 41.9 VOL% (42.0-52.0); Hemoglobin 13.2 GM/DL (14.0-18.0); Immature Granulocytes Absolute 0.09 #; Lymphocytes # 0.9 10*3/uL (1.4-4.0); Lymphocytes % 10.1 % (21.2-54.2); Mean Corpuscular HGB Conc 31.5 GM/DL (32-36); Mean Corpuscular Hemoglobin 31 PG (27-34); Mean Corpuscular Volume 99.8 FL (87-102); Mean Platelet Volume 10.5 FL (9.6-12.0); Monocytes # 0.9 10*3/uL (0.11-0.8); Neutrophils % 78.8 % (38.7-73.9); Platelet Count 152 T/CUMM (130-400); Red Cell Distribution Width 16.3 % (9.3-17.3); White Blood Count 8.9 T/CUMM (4-12)
[2018-05-30 05:36] LABS: Calcium 8.1 MG/DL (8.5-10.1); Osmolality,Calculated 285.8 MOS/KG (273-304); Potassium 4.4 MMOL/L (3.5-5.1)
[2018-05-30 06:04] LABS: Troponin I 0.104 NG/ML (0.00-0.045)
[2018-05-30] MEDS: DORNASE ALFA 2.5 MG/2.5 ML VIAL RESP TX SCH ×2 (07:05→19:28)
[2018-05-30] MEDS ORDERED: FUROSEMIDE 40 MG/4 ML VIAL IV ONE (07:29)
[2018-05-30] MEDS: ROSUVASTATIN 20 MG TABLET PO SCH (09:01)
[2018-05-30] MEDS: ASPIRIN EC 81 MG TABLET PO SCH (09:02)
[2018-05-30] MEDS: ISOSORBIDE DINITRATE 10 MG TABLET PO SCH ×3 (09:10→21:26)
[2018-05-30] MEDS: PANTOPRAZOLE 40 MG VIAL IV SCH (09:10)
[2018-05-30] MEDS: POTASSIUM CHLORIDE 20 MEQ/15 ML UDCUP PER TUBE SCH ×2 (09:19→21:55)
[2018-05-30] MEDS: NICOTINE 14 MG/24 HR PATCH TRANSDERM SCH (09:51)
[2018-05-30] MEDS: POTASSIUM CHLORIDE 20 MEQ TABLET PO SCH (10:19)
[2018-05-30] MEDS: ENOXAPARIN 40 MG/0.4 ML SYRINGE SUBCUT SCH (13:16)
[2018-05-30] MEDS: LEVOFLOXACIN INJ 500 MG in PREMIX 1 EACH IV SCH (13:21)
[2018-05-30] MEDS: MELATONIN 3 MG TABLET PO SCH (21:26)
[2018-05-31] MEDS: PROPOFOL 1,000 MG/100 ML BOTTLE IV SCH ×9 (00:05→23:37)
[2018-05-31] MEDS: INSULIN REGULAR 100 UNIT/ML SUBCUT SCH ×5 (00:06→23:51)
[2018-05-31] MEDS: fentaNYL INJ 1,250 MCG in SODIUM CHLORIDE 0.9% 225 ML IV PRN ×3 (00:20→18:51)
[2018-05-31] MEDS: ALBUTEROL/IPRATROPIUM 3 ML NEB RESP TX SCH ×4 (00:29→19:04)
[2018-05-31] MEDS: CLINDAMYCIN INJ 900 MG in PREMIX 1 EACH IV SCH ×3 (01:00→16:49)
[2018-05-31] MEDS: ALBUTEROL 0.4 MG/ML 30 ML/BOTTLE PO SCH ×6 (02:45→22:13)
[2018-05-31] MEDS: methylPREDNISolone SOD SUC 40 MG/1 ML VIAL IV SCH ×4 (03:40→22:08)
[2018-05-31 04:34] LABS: ABG Base Excess 13.2 MMOL/L (-2.5-2.5); ABG HCO3 36.9 MMOL/L (20-26); ABG Oxygen Saturation 92.2 % (95-100); ABG PCO2 61.1 MM HG (35-48); ABG PH 7.433 (7.35-7.45); ABG PO2 65.7 MM HG (80-95); ABG TCO2 35.2 MMOL/L (23-27); Allen Test Positive; Pt O2 Delivery Device Ventilator
[2018-05-31] MEDS: PIPERACILLIN/TAZOBACTAM 3,375 MG in SODIUM CHLORIDE 0.9% 100 ML IV SCH ×3 (05:10→22:11)
[2018-05-31 05:27] LABS: Calcium 8.3 MG/DL (8.5-10.1); Osmolality,Calculated 288.7 MOS/KG (273-304); Potassium 4.5 MMOL/L (3.5-5.1); Prealbumin 36.1 MG/DL (20-40)
[2018-05-31] MEDS: DORNASE ALFA 2.5 MG/2.5 ML VIAL RESP TX SCH (07:05)
[2018-05-31] MEDS: POTASSIUM CHLORIDE 20 MEQ/15 ML UDCUP PER TUBE SCH ×2 (08:52→22:11)
[2018-05-31] MEDS: NICOTINE 14 MG/24 HR PATCH TRANSDERM SCH (08:53)
[2018-05-31] MEDS: ROSUVASTATIN 20 MG TABLET PO SCH (08:54)
[2018-05-31] MEDS: ASPIRIN EC 81 MG TABLET PO SCH (08:54)
[2018-05-31] MEDS: PANTOPRAZOLE 40 MG VIAL IV SCH (08:54)
[2018-05-31] MEDS: ISOSORBIDE DINITRATE 10 MG TABLET PO SCH ×3 (08:55→22:11)
[2018-05-31] MEDS: ENOXAPARIN 40 MG/0.4 ML SYRINGE SUBCUT SCH (12:45)
[2018-05-31] MEDS: LEVOFLOXACIN INJ 500 MG in PREMIX 1 EACH IV SCH (12:45)
[2018-05-31] MEDS: MELATONIN 3 MG TABLET PO SCH (22:13)
[2018-06-01] MEDS: ALBUTEROL/IPRATROPIUM 3 ML NEB RESP TX SCH ×4 (00:32→19:11)
[2018-06-01] MEDS: CLINDAMYCIN INJ 900 MG in PREMIX 1 EACH IV SCH ×3 (00:55→16:41)
[2018-06-01] MEDS: ALBUTEROL 0.4 MG/ML 30 ML/BOTTLE PO SCH ×6 (02:08→21:16)
[2018-06-01] MEDS: PROPOFOL 1,000 MG/100 ML BOTTLE IV SCH ×8 (02:22→21:44)
[2018-06-01] MEDS: methylPREDNISolone SOD SUC 40 MG/1 ML VIAL IV SCH ×4 (03:33→21:12)
[2018-06-01 03:39] LABS: ABG Base Excess 12.4 MMOL/L (-2.5-2.5); ABG HCO3 39.6 MMOL/L (20-26); ABG Oxygen Saturation 93.4 % (95-100); ABG PCO2 61.3 MM HG (35-48); ABG PH 7.428 (7.35-7.45); ABG PO2 72.4 MM HG (80-95); ABG TCO2 41.5 MMOL/L (23-27); Allen Test Positive; Pt O2 Delivery Device Ventilator
[2018-06-01] MEDS: fentaNYL INJ 1,250 MCG in SODIUM CHLORIDE 0.9% 225 ML IV PRN ×3 (03:48→22:11)
[2018-06-01] MEDS: PIPERACILLIN/TAZOBACTAM 3,375 MG in SODIUM CHLORIDE 0.9% 100 ML IV SCH ×3 (05:39→21:15)
[2018-06-01 05:47] LABS: Calcium 8.5 MG/DL (8.5-10.1); Osmolality,Calculated 291.7 MOS/KG (273-304); Potassium 4.3 MMOL/L (3.5-5.1)
[2018-06-01] MEDS: INSULIN REGULAR 100 UNIT/ML SUBCUT SCH ×3 (06:10→17:39)
[2018-06-01] MEDS ORDERED: FUROSEMIDE 40 MG/4 ML VIAL IV ONE (06:47)
[2018-06-01] MEDS: ARFORMOTEROL 15 MCG/2 ML NEB RESP TX SCH ×2 (07:37→19:11)
[2018-06-01] MEDS: ASPIRIN EC 81 MG TABLET PO SCH (08:47)
[2018-06-01] MEDS: ROSUVASTATIN 20 MG TABLET PO SCH (08:48)
[2018-06-01] MEDS: PANTOPRAZOLE 40 MG VIAL IV SCH (08:48)
[2018-06-01] MEDS: POTASSIUM CHLORIDE 20 MEQ/15 ML UDCUP PER TUBE SCH ×2 (08:48→21:16)
[2018-06-01] MEDS: NICOTINE 14 MG/24 HR PATCH TRANSDERM SCH (08:51)
[2018-06-01] MEDS: ISOSORBIDE DINITRATE 10 MG TABLET PO SCH ×3 (09:47→21:15)
[2018-06-01] MEDS: ACETAMINOPHEN 325 MG TABLET PO PRN (09:58)
[2018-06-01] MEDS: ENOXAPARIN 40 MG/0.4 ML SYRINGE SUBCUT SCH (12:43)
[2018-06-01] MEDS: LEVOFLOXACIN INJ 500 MG in PREMIX 1 EACH IV SCH (12:44)
[2018-06-01] MEDS: MELATONIN 3 MG TABLET PO SCH (21:15)
[2018-06-02] MEDS: INSULIN REGULAR 100 UNIT/ML SUBCUT SCH ×5 (00:26→23:21)
[2018-06-02] MEDS: ALBUTEROL/IPRATROPIUM 3 ML NEB RESP TX SCH ×4 (00:45→19:40)
[2018-06-02] MEDS: PROPOFOL 1,000 MG/100 ML BOTTLE IV SCH ×8 (00:57→21:25)
[2018-06-02] MEDS: CLINDAMYCIN INJ 900 MG in PREMIX 1 EACH IV SCH ×3 (00:57→17:08)
[2018-06-02] MEDS: ALBUTEROL 0.4 MG/ML 30 ML/BOTTLE PO SCH ×6 (02:23→21:32)
[2018-06-02] MEDS: methylPREDNISolone SOD SUC 40 MG/1 ML VIAL IV SCH ×4 (02:39→21:28)
[2018-06-02 04:05] LABS: ABG Base Excess 14.3 MMOL/L (-2.5-2.5); ABG HCO3 41.8 MMOL/L (20-26); ABG Oxygen Saturation 87.3 % (95-100); ABG PCO2 62.9 MM HG (35-48); ABG TCO2 43.7 MMOL/L (23-27); Allen Test Positive; Pt O2 Delivery Device Ventilator
[2018-06-02 05:08] LABS: Basophils % 0.2 % (0.0-0.8); Hematocrit 45.3 VOL% (42.0-52.0); Hemoglobin 14.4 GM/DL (14.0-18.0); Immature Granulocytes % 1.6 %; Immature Granulocytes Absolute 0.18 #; Lymphocytes # 0.6 10*3/uL (1.4-4.0); Lymphocytes % 5.5 % (21.2-54.2); Mean Corpuscular HGB Conc 31.8 GM/DL (32-36); Mean Corpuscular Hemoglobin 31 PG (27-34); Mean Corpuscular Volume 98.7 FL (87-102); Mean Platelet Volume 10.5 FL (9.6-12.0); Monocytes % 8.8 % (1.7-12.7); Neutrophils # 9.3 10*3/uL (1.4-7.4); Neutrophils % 83.9 % (38.7-73.9); Platelet Count 182 T/CUMM (130-400); Red Blood Count 4.59 MC/CUMM (3.8-5.5); White Blood Count 11.1 T/CUMM (4-12)
[2018-06-02 05:26] LABS: Calcium 8.6 MG/DL (8.5-10.1); Potassium 4.2 MMOL/L (3.5-5.1)
[2018-06-02] MEDS: PIPERACILLIN/TAZOBACTAM 3,375 MG in SODIUM CHLORIDE 0.9% 100 ML IV SCH (05:27)
[2018-06-02] MEDS: fentaNYL INJ 1,250 MCG in SODIUM CHLORIDE 0.9% 225 ML IV PRN ×2 (07:15→16:27)
[2018-06-02] MEDS: ARFORMOTEROL 15 MCG/2 ML NEB RESP TX SCH ×2 (07:24→19:40)
[2018-06-02] MEDS: ASPIRIN EC 81 MG TABLET PO SCH (09:34)
[2018-06-02] MEDS: ROSUVASTATIN 20 MG TABLET PO SCH (09:34)
[2018-06-02] MEDS: POTASSIUM CHLORIDE 20 MEQ/15 ML UDCUP PER TUBE SCH ×2 (09:35→21:32)
[2018-06-02] MEDS: NICOTINE 14 MG/24 HR PATCH TRANSDERM SCH (09:35)
[2018-06-02] MEDS: MEROPENEM 1,000 MG in SODIUM CHLORIDE 0.9% 100 ML IV SCH ×2 (09:36→17:09)
[2018-06-02] MEDS: PANTOPRAZOLE 40 MG VIAL IV SCH (09:36)
[2018-06-02] MEDS: FUROSEMIDE 40 MG/4 ML VIAL IV SCH (09:37)
[2018-06-02] MEDS: ISOSORBIDE DINITRATE 10 MG TABLET PO SCH ×3 (09:43→21:32)
[2018-06-02] MEDS: FLUCONAZOLE INJ 400 MG in PREMIX 1 EACH IV SCH (11:01)
[2018-06-02] MEDS: ENOXAPARIN 40 MG/0.4 ML SYRINGE SUBCUT SCH (14:56)
[2018-06-02] MEDS: MELATONIN 3 MG TABLET PO SCH (21:32)
[2018-06-03] MEDS: PROPOFOL 1,000 MG/100 ML BOTTLE IV SCH ×9 (00:31→23:00)
[2018-06-03] MEDS: MEROPENEM 1,000 MG in SODIUM CHLORIDE 0.9% 100 ML IV SCH ×3 (00:32→16:00)
[2018-06-03] MEDS: CLINDAMYCIN INJ 900 MG in PREMIX 1 EACH IV SCH ×3 (00:32→16:00)
[2018-06-03] MEDS: ALBUTEROL/IPRATROPIUM 3 ML NEB RESP TX SCH ×4 (01:09→19:52)
[2018-06-03] MEDS: fentaNYL INJ 1,250 MCG in SODIUM CHLORIDE 0.9% 225 ML IV PRN ×2 (01:42→10:48)
[2018-06-03] MEDS: ALBUTEROL 0.4 MG/ML 30 ML/BOTTLE PO SCH ×6 (02:04→21:53)
[2018-06-03] MEDS: methylPREDNISolone SOD SUC 40 MG/1 ML VIAL IV SCH ×4 (03:06→21:51)
[2018-06-03 04:05] LABS: Pt O2 Delivery Device Ventilator
[2018-06-03 04:09] LABS: ABG Base Excess 7.4 MMOL/L (-2.5-2.5); ABG HCO3 30.9 MMOL/L (20-26); ABG Oxygen Saturation 90.6 % (95-100); ABG PCO2 57.8 MM HG (35-48); ABG PH 7.388 (7.35-7.45); ABG PO2 65.3 MM HG (80-95); ABG TCO2 29.7 MMOL/L (23-27)
[2018-06-03] MEDS: INSULIN REGULAR 100 UNIT/ML SUBCUT SCH ×3 (06:12→18:30)
[2018-06-03 06:18] LABS: Calcium 8.5 MG/DL (8.5-10.1); Osmolality,Calculated 286.8 MOS/KG (273-304); Potassium 3.8 MMOL/L (3.5-5.1)
[2018-06-03 06:23] LABS: Prealbumin 49.6 MG/DL (20-40)
[2018-06-03] MEDS: ARFORMOTEROL 15 MCG/2 ML NEB RESP TX SCH ×2 (06:51→19:52)
[2018-06-03] MEDS ORDERED: MIDAZOLAM 2 MG/2 ML VIAL IV ONE (07:54)
[2018-06-03] MEDS ORDERED: LIDOCAINE 1% 20 ML VIAL MISC INJ ONE (07:54)
[2018-06-03] MEDS: ASPIRIN EC 81 MG TABLET PO SCH (08:45)
[2018-06-03] MEDS: ROSUVASTATIN 20 MG TABLET PO SCH (08:45)
[2018-06-03] MEDS: PANTOPRAZOLE 40 MG VIAL IV SCH (08:45)
[2018-06-03] MEDS: POTASSIUM CHLORIDE 20 MEQ/15 ML UDCUP PER TUBE SCH ×2 (08:45→21:53)
[2018-06-03] MEDS: ISOSORBIDE DINITRATE 10 MG TABLET PO SCH ×3 (08:46→21:52)
[2018-06-03] MEDS: FUROSEMIDE 40 MG/4 ML VIAL IV SCH (08:46)
[2018-06-03] MEDS: NICOTINE 14 MG/24 HR PATCH TRANSDERM SCH (08:57)
[2018-06-03] MEDS: FLUCONAZOLE INJ 400 MG in PREMIX 1 EACH IV SCH (09:41)
[2018-06-03] MEDS: ENOXAPARIN 40 MG/0.4 ML SYRINGE SUBCUT SCH (13:22)
[2018-06-03] MEDS: METOCLOPRAMIDE 10 MG/2 ML VIAL IV SCH (18:45)
[2018-06-03] MEDS: NYSTATIN 500,000 UNIT/5 ML UDCUP PO SCH (21:53)
[2018-06-03] MEDS: MELATONIN 3 MG TABLET PO SCH (21:53)
[2018-06-04] MEDS: ALBUTEROL/IPRATROPIUM 3 ML NEB RESP TX SCH ×4 (00:01→20:05)
[2018-06-04] MEDS: INSULIN REGULAR 100 UNIT/ML SUBCUT SCH ×4 (00:04→18:42)
[2018-06-04] MEDS: METOCLOPRAMIDE 10 MG/2 ML VIAL IV SCH ×4 (00:04→19:00)
[2018-06-04] MEDS: MEROPENEM 1,000 MG in SODIUM CHLORIDE 0.9% 100 ML IV SCH ×3 (00:27→17:58)
[2018-06-04] MEDS: CLINDAMYCIN INJ 900 MG in PREMIX 1 EACH IV SCH ×3 (00:27→17:58)
[2018-06-04] MEDS: fentaNYL INJ 1,250 MCG in SODIUM CHLORIDE 0.9% 225 ML IV PRN (00:48)
[2018-06-04] MEDS: PROPOFOL 1,000 MG/100 ML BOTTLE IV SCH ×9 (01:23→21:51)
[2018-06-04] MEDS: ALBUTEROL 0.4 MG/ML 30 ML/BOTTLE PO SCH ×6 (02:02→22:07)
[2018-06-04] MEDS: methylPREDNISolone SOD SUC 40 MG/1 ML VIAL IV SCH ×4 (03:11→21:37)
[2018-06-04 03:52] LABS: ABG Base Excess 4.6 MMOL/L (-2.5-2.5); ABG HCO3 28.3 MMOL/L (20-26); ABG Oxygen Saturation 90.8 % (95-100); ABG PCO2 55.5 MM HG (35-48); ABG PH 7.368 (7.35-7.45); ABG PO2 66.3 MM HG (80-95); ABG TCO2 27.1 MMOL/L (23-27); Pt O2 Delivery Device Ventilator
[2018-06-04 05:03] LABS: Basophils % 0.2 % (0.0-0.8); Hematocrit 45.8 VOL% (42.0-52.0); Hemoglobin 14.4 GM/DL (14.0-18.0); Immature Granulocytes Absolute 0.22 #; Lymphocytes # 0.7 10*3/uL (1.4-4.0); Lymphocytes % 6.5 % (21.2-54.2); Mean Corpuscular HGB Conc 31.4 GM/DL (32-36); Mean Corpuscular Hemoglobin 31 PG (27-34); Mean Corpuscular Volume 97.9 FL (87-102); Mean Platelet Volume 10.7 FL (9.6-12.0); Monocytes # 1.3 10*3/uL (0.11-0.8); Monocytes % 11.6 % (1.7-12.7); Neutrophils # 8.9 10*3/uL (1.4-7.4); Neutrophils % 79.7 % (38.7-73.9); Platelet Count 178 T/CUMM (130-400); Red Blood Count 4.68 MC/CUMM (3.8-5.5); Red Cell Distribution Width 15.9 % (9.3-17.3); White Blood Count 11.2 T/CUMM (4-12)
[2018-06-04 05:37] LABS: Calcium 8.7 MG/DL (8.5-10.1); Osmolality,Calculated 285.8 MOS/KG (273-304); Potassium 3.8 MMOL/L (3.5-5.1)
[2018-06-04] MEDS: ARFORMOTEROL 15 MCG/2 ML NEB RESP TX SCH ×2 (07:45→20:05)
[2018-06-04] MEDS: FUROSEMIDE 40 MG/4 ML VIAL IV SCH (09:07)
[2018-06-04] MEDS: PANTOPRAZOLE 40 MG VIAL IV SCH (09:12)
[2018-06-04] MEDS: POTASSIUM CHLORIDE 20 MEQ/15 ML UDCUP PER TUBE SCH ×2 (09:20→21:40)
[2018-06-04] MEDS: ASPIRIN EC 81 MG TABLET PO SCH (09:20)
[2018-06-04] MEDS: NYSTATIN 500,000 UNIT/5 ML UDCUP PO SCH ×2 (09:25→21:40)
[2018-06-04] MEDS: ROSUVASTATIN 20 MG TABLET PO SCH (09:25)
[2018-06-04] MEDS: ISOSORBIDE DINITRATE 10 MG TABLET PO SCH ×3 (09:25→21:39)
[2018-06-04] MEDS: NICOTINE 14 MG/24 HR PATCH TRANSDERM SCH (09:28)
[2018-06-04] MEDS: FLUCONAZOLE INJ 400 MG in PREMIX 1 EACH IV SCH (10:43)
[2018-06-04] MEDS: ENOXAPARIN 40 MG/0.4 ML SYRINGE SUBCUT SCH (14:24)
[2018-06-04] MEDS ORDERED: AMIODARONE INJ 150 MG in DEXTROSE 5% 100 ML IV ONE (14:43)
[2018-06-04] MEDS ORDERED: AMIODARONE INJ 450 MG in DEXTROSE 5% 241 ML IV SCH (15:00)
[2018-06-04 15:28] LABS: Potassium 3.6 MMOL/L (3.5-5.1)
[2018-06-04] MEDS: MORPHINE 4 MG/1 ML VIAL IV PRN (18:03)
[2018-06-04] MEDS: MELATONIN 3 MG TABLET PO SCH (21:40)
[2018-06-04] MEDS: AMIODARONE INJ 450 MG in DEXTROSE 5% 241 ML IV SCH (21:43)
[2018-06-05] MEDS: INSULIN REGULAR 100 UNIT/ML SUBCUT SCH ×4 (00:08→18:08)
[2018-06-05] MEDS: METOCLOPRAMIDE 10 MG/2 ML VIAL IV SCH ×4 (00:21→18:14)
[2018-06-05] MEDS: PROPOFOL 1,000 MG/100 ML BOTTLE IV SCH ×10 (00:22→21:18)
[2018-06-05] MEDS: ALBUTEROL/IPRATROPIUM 3 ML NEB RESP TX SCH ×4 (00:37→19:55)
[2018-06-05] MEDS: CLINDAMYCIN INJ 900 MG in PREMIX 1 EACH IV SCH ×2 (02:07→10:52)
[2018-06-05] MEDS: ALBUTEROL 0.4 MG/ML 30 ML/BOTTLE PO SCH ×6 (02:08→21:01)
[2018-06-05] MEDS: MEROPENEM 1,000 MG in SODIUM CHLORIDE 0.9% 100 ML IV SCH ×3 (02:58→18:31)
[2018-06-05] MEDS: methylPREDNISolone SOD SUC 40 MG/1 ML VIAL IV SCH ×4 (02:59→20:05)
[2018-06-05 04:13] LABS: ABG Base Excess 5.7 MMOL/L (-2.5-2.5); ABG HCO3 29.5 MMOL/L (20-26); ABG Oxygen Saturation 93.6 % (95-100); ABG PCO2 48.5 MM HG (35-48); ABG PH 7.422 (7.35-7.45); ABG PO2 73.5 MM HG (80-95); ABG TCO2 26.5 MMOL/L (23-27); Pt O2 Delivery Device Ventilator
[2018-06-05] MEDS: ARFORMOTEROL 15 MCG/2 ML NEB RESP TX SCH ×2 (07:16→19:55)
[2018-06-05 09:43] LABS: Calcium 8.6 MG/DL (8.5-10.1); Potassium 3.6 MMOL/L (3.5-5.1)
[2018-06-05] MEDS: ASPIRIN EC 81 MG TABLET PO SCH (10:04)
[2018-06-05] MEDS: ROSUVASTATIN 20 MG TABLET PO SCH (10:04)
[2018-06-05] MEDS: ISOSORBIDE DINITRATE 10 MG TABLET PO SCH ×3 (10:05→20:05)
[2018-06-05] MEDS: FUROSEMIDE 40 MG/4 ML VIAL IV SCH (10:05)
[2018-06-05] MEDS: NYSTATIN 500,000 UNIT/5 ML UDCUP PO SCH ×2 (10:07→20:05)
[2018-06-05] MEDS: POTASSIUM CHLORIDE 20 MEQ/15 ML UDCUP PER TUBE SCH ×2 (10:07→20:05)
[2018-06-05] MEDS: PANTOPRAZOLE 40 MG VIAL IV SCH (10:08)
[2018-06-05] MEDS: NICOTINE 14 MG/24 HR PATCH TRANSDERM SCH ×2 (10:08→18:09)
[2018-06-05] MEDS: FLUCONAZOLE INJ 400 MG in PREMIX 1 EACH IV SCH (10:57)
[2018-06-05] MEDS: ENOXAPARIN 40 MG/0.4 ML SYRINGE SUBCUT SCH (12:58)
[2018-06-05] MEDS: AMIODARONE INJ 450 MG in DEXTROSE 5% 241 ML IV SCH (14:38)
[2018-06-06] MEDS: PROPOFOL 1,000 MG/100 ML BOTTLE IV SCH ×12 (00:48→22:12)
[2018-06-06] MEDS: METOCLOPRAMIDE 10 MG/2 ML VIAL IV SCH ×4 (00:49→18:26)
[2018-06-06] MEDS: INSULIN REGULAR 100 UNIT/ML SUBCUT SCH ×4 (00:49→18:27)
[2018-06-06] MEDS: ALBUTEROL/IPRATROPIUM 3 ML NEB RESP TX SCH ×4 (00:58→20:18)
[2018-06-06] MEDS: ALBUTEROL 0.4 MG/ML 30 ML/BOTTLE PO SCH ×6 (02:09→22:19)
[2018-06-06] MEDS: MEROPENEM 1,000 MG in SODIUM CHLORIDE 0.9% 100 ML IV SCH ×3 (02:56→18:25)
[2018-06-06] MEDS: methylPREDNISolone SOD SUC 40 MG/1 ML VIAL IV SCH ×4 (02:56→22:19)
[2018-06-06 03:25] LABS: Basophils % 0.2 % (0.0-0.8); Hematocrit 46.2 VOL% (42.0-52.0); Hemoglobin 15.7 GM/DL (14.0-18.0); Immature Granulocytes % 1.7 %; Immature Granulocytes Absolute 0.22 #; Lymphocytes # 0.6 10*3/uL (1.4-4.0); Lymphocytes % 4.7 % (21.2-54.2); Mean Corpuscular Hemoglobin 32 PG (27-34); Mean Corpuscular Volume 94.5 FL (87-102); Mean Platelet Volume 10.9 FL (9.6-12.0); Monocytes # 1.5 10*3/uL (0.11-0.8); Monocytes % 11.4 % (1.7-12.7); Neutrophils # 10.9 10*3/uL (1.4-7.4); Platelet Count 157 T/CUMM (130-400); Red Blood Count 4.89 MC/CUMM (3.8-5.5); Red Cell Distribution Width 15.8 % (9.3-17.3); White Blood Count 13.3 T/CUMM (4-12)
[2018-06-06] MEDS: AMIODARONE INJ 450 MG in DEXTROSE 5% 241 ML IV SCH ×2 (03:36→06:46)
[2018-06-06 04:01] LABS: Band Neutrophils 2 % (0-10); Lymphocytes 7 % (20-55); Segmented Neutrophils 88 % (50-85); Total Cells Counted 100
[2018-06-06 04:02] LABS: Platelet Estimate Adequate; Polychromasia Few
[2018-06-06 04:12] LABS: Calcium 7.5 MG/DL (8.5-10.1); Osmolality,Calculated 278.5 MOS/KG (273-304); Potassium 3.8 MMOL/L (3.5-5.1)
[2018-06-06 04:32] LABS: ABG Base Excess 6.5 MMOL/L (-2.5-2.5); ABG Oxygen Saturation 89.5 % (95-100); ABG PCO2 43.9 MM HG (35-48); ABG PH 7.461 (7.35-7.45); ABG PO2 57.8 MM HG (80-95); ABG TCO2 25.8 MMOL/L (23-27); Pt O2 Delivery Device Ventilator
[2018-06-06] MEDS: ARFORMOTEROL 15 MCG/2 ML NEB RESP TX SCH ×2 (07:00→20:20)
[2018-06-06] MEDS: AMIODARONE 200 MG TABLET PO SCH (08:52)
[2018-06-06] MEDS: ISOSORBIDE DINITRATE 10 MG TABLET PO SCH ×3 (08:54→22:22)
[2018-06-06] MEDS: POTASSIUM CHLORIDE 20 MEQ/15 ML UDCUP PER TUBE SCH ×2 (08:54→22:20)
[2018-06-06] MEDS: ASPIRIN EC 81 MG TABLET PO SCH (08:54)
[2018-06-06] MEDS: ROSUVASTATIN 20 MG TABLET PO SCH (08:54)
[2018-06-06] MEDS: NYSTATIN 500,000 UNIT/5 ML UDCUP PO SCH ×2 (08:54→22:22)
[2018-06-06] MEDS: PANTOPRAZOLE 40 MG VIAL IV SCH (08:55)
[2018-06-06] MEDS: FUROSEMIDE 40 MG/4 ML VIAL IV SCH (08:55)
[2018-06-06] MEDS: FLUCONAZOLE INJ 400 MG in PREMIX 1 EACH IV SCH (09:03)
[2018-06-06] MEDS ORDERED: DEXTROSE 10% 1,000 ML IV PRN (17:10)
[2018-06-06] MEDS ORDERED: TRACE ELEMENTS IV SCH (19:00)
[2018-06-06] MEDS ORDERED: MULTIVITAMIN IV SCH (19:00)
[2018-06-06] MEDS ORDERED: [UNRECOGNIZED DRUG - OTHER] IV SCH (19:00)
[2018-06-06] MEDS ORDERED: ELECTROLYTE IV SCH (19:00)
[2018-06-07] MEDS: INSULIN REGULAR 100 UNIT/ML SUBCUT SCH ×4 (00:28→17:09)
[2018-06-07] MEDS: PROPOFOL 1,000 MG/100 ML BOTTLE IV SCH ×9 (00:30→22:30)
[2018-06-07] MEDS: ALBUTEROL/IPRATROPIUM 3 ML NEB RESP TX SCH ×4 (01:42→19:19)
[2018-06-07] MEDS: methylPREDNISolone SOD SUC 40 MG/1 ML VIAL IV SCH ×4 (02:07→20:26)
[2018-06-07] MEDS: METOCLOPRAMIDE 10 MG/2 ML VIAL IV SCH ×4 (02:08→17:01)
[2018-06-07] MEDS: MEROPENEM 1,000 MG in SODIUM CHLORIDE 0.9% 100 ML IV SCH ×3 (02:11→20:28)
[2018-06-07] MEDS: ALBUTEROL 0.4 MG/ML 30 ML/BOTTLE PO SCH ×2 (02:11→07:37)
[2018-06-07 05:00] LABS: Pt O2 Delivery Device Ventilator
[2018-06-07 05:01] LABS: ABG Base Excess 5.7 MMOL/L (-2.5-2.5); ABG HCO3 29.4 MMOL/L (20-26); ABG Oxygen Saturation 93.2 % (95-100); ABG PH 7.424 (7.35-7.45); ABG PO2 70.5 MM HG (80-95); ABG TCO2 26.3 MMOL/L (23-27)
[2018-06-07 06:33] LABS: Basophils % 0.1 % (0.0-0.8); Hematocrit 47.4 VOL% (42.0-52.0); Hemoglobin 15.4 GM/DL (14.0-18.0); Immature Granulocytes % 1.5 %; Immature Granulocytes Absolute 0.18 #; Lymphocytes # 0.6 10*3/uL (1.4-4.0); Lymphocytes % 4.9 % (21.2-54.2); Mean Corpuscular HGB Conc 32.5 GM/DL (32-36); Mean Corpuscular Hemoglobin 31 PG (27-34); Mean Corpuscular Volume 95.6 FL (87-102); Mean Platelet Volume 10.8 FL (9.6-12.0); Monocytes # 0.9 10*3/uL (0.11-0.8); Monocytes % 7.6 % (1.7-12.7); Neutrophils # 10.4 10*3/uL (1.4-7.4); Neutrophils % 85.9 % (38.7-73.9); Platelet Count 123 T/CUMM (130-400); Red Blood Count 4.96 MC/CUMM (3.8-5.5); Red Cell Distribution Width 15.9 % (9.3-17.3); White Blood Count 12.2 T/CUMM (4-12)
[2018-06-07 06:57] LABS: Calcium 8.3 MG/DL (8.5-10.1); Osmolality,Calculated 289.7 MOS/KG (273-304); Potassium 4.1 MMOL/L (3.5-5.1)
[2018-06-07 06:58] LABS: Band Neutrophils 3 % (0-10); Lymphocytes 6 % (20-55); Platelet Estimate Decreased; Segmented Neutrophils 84 % (50-85); Total Cells Counted 100
[2018-06-07 06:59] LABS: Hypochromasia Slight
[2018-06-07] MEDS: ARFORMOTEROL 15 MCG/2 ML NEB RESP TX SCH ×2 (08:02→19:19)
[2018-06-07] MEDS: ISOSORBIDE DINITRATE 10 MG TABLET PO SCH ×3 (08:52→20:26)
[2018-06-07] MEDS: ROSUVASTATIN 20 MG TABLET PO SCH (08:52)
[2018-06-07] MEDS: AMIODARONE 200 MG TABLET PO SCH (08:54)
[2018-06-07] MEDS: ASPIRIN EC 81 MG TABLET PO SCH (08:54)
[2018-06-07] MEDS: POTASSIUM CHLORIDE 20 MEQ/15 ML UDCUP PER TUBE SCH ×2 (08:55→20:26)
[2018-06-07] MEDS: NYSTATIN 500,000 UNIT/5 ML UDCUP PO SCH ×2 (09:17→20:26)
[2018-06-07] MEDS: PANTOPRAZOLE 40 MG VIAL IV SCH (09:19)
[2018-06-07] MEDS: FUROSEMIDE 40 MG/4 ML VIAL IV SCH (09:30)
[2018-06-07] MEDS: FLUCONAZOLE INJ 400 MG in PREMIX 1 EACH IV SCH (09:35)
[2018-06-07] MEDS ORDERED: LIDOCAINE 1%/EPI INJ 20 ML VIAL ONE (11:32)
[2018-06-07] MEDS ORDERED: MIDAZOLAM 10 MG/2 ML VIAL ONE (13:14)
[2018-06-07] MEDS ORDERED: SEVOFLURANE 1 UNIT/15 MINUTE INH ONE (13:14)
[2018-06-07] MEDS ORDERED: ROCURONIUM 100 MG/10 ML VIAL IV ONE (13:14)
[2018-06-07] MEDS: ENOXAPARIN 40 MG/0.4 ML SYRINGE SUBCUT SCH (13:31)
[2018-06-07] MEDS: ELECTROLYTE IV SCH (19:06)
[2018-06-07] MEDS: [UNRECOGNIZED DRUG - OTHER] IV SCH (19:06)
[2018-06-07] MEDS: MULTIVITAMIN IV SCH (19:06)
[2018-06-07] MEDS: TRACE ELEMENTS IV SCH (19:06)
[2018-06-07] MEDS: LORazepam 2 MG/1 ML VIAL IV PRN (20:26)
[2018-06-08] MEDS: INSULIN REGULAR 100 UNIT/ML SUBCUT SCH ×4 (00:17→17:24)
[2018-06-08] MEDS: METOCLOPRAMIDE 10 MG/2 ML VIAL IV SCH ×4 (00:19→17:48)
[2018-06-08] MEDS: PROPOFOL 1,000 MG/100 ML BOTTLE IV SCH ×3 (01:17→06:08)
[2018-06-08] MEDS: LORazepam 2 MG/1 ML VIAL IV PRN (01:18)
[2018-06-08] MEDS: ALBUTEROL/IPRATROPIUM 3 ML NEB RESP TX SCH ×4 (01:32→20:15)
[2018-06-08 03:21] LABS: ABG Base Excess 4.6 MMOL/L (-2.5-2.5); ABG HCO3 28.4 MMOL/L (20-26); ABG Oxygen Saturation 93.4 % (95-100); ABG PCO2 45.7 MM HG (35-48); ABG PH 7.425 (7.35-7.45); ABG PO2 70.4 MM HG (80-95); ABG TCO2 25.1 MMOL/L (23-27); Allen Test Positive; Pt O2 Delivery Device Ventilator
[2018-06-08 03:41] LABS: Basophils % 0.1 % (0.0-0.8); Hematocrit 47.2 VOL% (42.0-52.0); Hemoglobin 15.4 GM/DL (14.0-18.0); Immature Granulocytes % 1.2 %; Immature Granulocytes Absolute 0.16 #; Lymphocytes # 0.6 10*3/uL (1.4-4.0); Lymphocytes % 4.4 % (21.2-54.2); Mean Corpuscular HGB Conc 32.6 GM/DL (32-36); Mean Corpuscular Hemoglobin 31 PG (27-34); Mean Corpuscular Volume 95.7 FL (87-102); Mean Platelet Volume 11.2 FL (9.6-12.0); Monocytes # 1.1 10*3/uL (0.11-0.8); Monocytes % 7.6 % (1.7-12.7); Neutrophils % 86.7 % (38.7-73.9); Platelet Count 113 T/CUMM (130-400); Red Blood Count 4.93 MC/CUMM (3.8-5.5); Red Cell Distribution Width 15.9 % (9.3-17.3); White Blood Count 13.8 T/CUMM (4-12)
[2018-06-08] MEDS: MEROPENEM 1,000 MG in SODIUM CHLORIDE 0.9% 100 ML IV SCH ×3 (03:41→18:21)
[2018-06-08] MEDS: methylPREDNISolone SOD SUC 40 MG/1 ML VIAL IV SCH ×4 (03:41→20:25)
[2018-06-08 04:08] LABS: Calcium 8.1 MG/DL (8.5-10.1); Osmolality,Calculated 292.5 MOS/KG (273-304); Potassium 3.7 MMOL/L (3.5-5.1)
[2018-06-08 07:18] LABS: Lymphocytes 4 % (20-55); Segmented Neutrophils 86 % (50-85)
[2018-06-08 07:19] LABS: Anisocytosis 1+; Hypochromasia 1+; Macrocytosis 1+; Platelet Estimate Decreased
[2018-06-08 07:20] LABS: Reactive Lymphocytes Few; Total Cells Counted 100
[2018-06-08] MEDS: ARFORMOTEROL 15 MCG/2 ML NEB RESP TX SCH ×2 (07:50→20:15)
[2018-06-08] MEDS: NYSTATIN 500,000 UNIT/5 ML UDCUP PO SCH ×2 (08:28→20:25)
[2018-06-08] MEDS: AMIODARONE 200 MG TABLET PO SCH (08:28)
[2018-06-08] MEDS: ROSUVASTATIN 20 MG TABLET PO SCH (08:28)
[2018-06-08] MEDS: ISOSORBIDE DINITRATE 10 MG TABLET PO SCH ×3 (08:34→20:25)
[2018-06-08] MEDS: ASPIRIN EC 81 MG TABLET PO SCH (08:35)
[2018-06-08] MEDS: FUROSEMIDE 40 MG/4 ML VIAL IV SCH (08:38)
[2018-06-08] MEDS ORDERED: DEXMEDETOMIDINE 200 MCG in SODIUM CHLORIDE 0.9% 48 ML IV PRN (08:38)
[2018-06-08] MEDS: PANTOPRAZOLE 40 MG VIAL IV SCH (08:44)
[2018-06-08] MEDS: POTASSIUM CHLORIDE 20 MEQ/15 ML UDCUP PER TUBE SCH ×2 (08:52→20:25)
[2018-06-08] MEDS: FLUCONAZOLE INJ 400 MG in PREMIX 1 EACH IV SCH (09:01)
[2018-06-08] MEDS: ENOXAPARIN 40 MG/0.4 ML SYRINGE SUBCUT SCH (13:30)
[2018-06-08] MEDS: MORPHINE 4 MG/1 ML VIAL IV PRN ×2 (13:34→19:08)
[2018-06-08] MEDS: ACETYLCYSTEINE 20% 800 MG/4 ML VIAL RESP TX SCH ×2 (14:10→20:20)
[2018-06-08] MEDS: ELECTROLYTE IV SCH (17:24)
[2018-06-08] MEDS: TRACE ELEMENTS IV SCH (17:24)
[2018-06-08] MEDS: MULTIVITAMIN IV SCH (17:24)
[2018-06-08] MEDS: [UNRECOGNIZED DRUG - OTHER] IV SCH (17:24)
[2018-06-09] MEDS: DEXMEDETOMIDINE 400 MCG in SODIUM CHLORIDE 0.9% 96 ML IV PRN ×4 (00:17→21:01)
[2018-06-09] MEDS: LORazepam 2 MG/1 ML VIAL IV PRN ×3 (00:18→20:48)
[2018-06-09] MEDS: MORPHINE 4 MG/1 ML VIAL IV PRN ×2 (00:18→20:48)
[2018-06-09] MEDS: METOCLOPRAMIDE 10 MG/2 ML VIAL IV SCH ×4 (00:38→17:30)
[2018-06-09] MEDS: INSULIN REGULAR 100 UNIT/ML SUBCUT SCH ×4 (01:23→17:09)
[2018-06-09] MEDS: ACETYLCYSTEINE 20% 800 MG/4 ML VIAL RESP TX SCH ×4 (01:56→19:36)
[2018-06-09] MEDS: ALBUTEROL/IPRATROPIUM 3 ML NEB RESP TX SCH ×4 (01:56→19:36)
[2018-06-09] MEDS: MEROPENEM 1,000 MG in SODIUM CHLORIDE 0.9% 100 ML IV SCH ×3 (03:16→18:31)
[2018-06-09] MEDS: methylPREDNISolone SOD SUC 40 MG/1 ML VIAL IV SCH ×4 (03:16→20:48)
[2018-06-09 03:35] LABS: ABG HCO3 28.2 MMOL/L (20-26); ABG Oxygen Saturation 93.4 % (95-100); ABG PCO2 40.8 MM HG (35-48); ABG PH 7.457 (7.35-7.45); ABG PO2 68.4 MM HG (80-95); ABG TCO2 29.4 MMOL/L (23-27); Allen Test Positive; Pt O2 Delivery Device Ventilator
[2018-06-09] MEDS: ARFORMOTEROL 15 MCG/2 ML NEB RESP TX SCH ×2 (07:22→19:36)
[2018-06-09] MEDS: ROSUVASTATIN 20 MG TABLET PO SCH (08:12)
[2018-06-09] MEDS: ASPIRIN EC 81 MG TABLET PO SCH (08:12)
[2018-06-09] MEDS: POTASSIUM CHLORIDE 20 MEQ/15 ML UDCUP PER TUBE SCH ×2 (08:12→20:47)
[2018-06-09] MEDS: ISOSORBIDE DINITRATE 10 MG TABLET PO SCH ×3 (08:12→20:51)
[2018-06-09] MEDS: AMIODARONE 200 MG TABLET PO SCH (08:13)
[2018-06-09] MEDS: NYSTATIN 500,000 UNIT/5 ML UDCUP PO SCH ×2 (08:13→20:49)
[2018-06-09] MEDS: PANTOPRAZOLE 40 MG VIAL IV SCH (08:20)
[2018-06-09] MEDS: FUROSEMIDE 40 MG/4 ML VIAL IV SCH (08:28)
[2018-06-09] MEDS: FLUCONAZOLE INJ 400 MG in PREMIX 1 EACH IV SCH (09:26)
[2018-06-09] MEDS: ENOXAPARIN 40 MG/0.4 ML SYRINGE SUBCUT SCH (14:06)
[2018-06-09] MEDS: MULTIVITAMIN IV SCH (17:29)
[2018-06-09] MEDS: TRACE ELEMENTS IV SCH (17:29)
[2018-06-09] MEDS: [UNRECOGNIZED DRUG - OTHER] IV SCH (17:29)
[2018-06-09] MEDS: ELECTROLYTE IV SCH (17:29)
[2018-06-10] MEDS: INSULIN REGULAR 100 UNIT/ML SUBCUT SCH ×4 (00:13→17:47)
[2018-06-10] MEDS: METOCLOPRAMIDE 10 MG/2 ML VIAL IV SCH ×4 (00:16→18:01)
[2018-06-10] MEDS: ALBUTEROL/IPRATROPIUM 3 ML NEB RESP TX SCH ×4 (00:40→19:19)
[2018-06-10] MEDS: ACETYLCYSTEINE 20% 800 MG/4 ML VIAL RESP TX SCH ×4 (00:40→19:19)
[2018-06-10] MEDS: MORPHINE 4 MG/1 ML VIAL IV PRN ×3 (01:07→10:43)
[2018-06-10] MEDS: LORazepam 2 MG/1 ML VIAL IV PRN ×3 (01:07→10:44)
[2018-06-10 03:52] LABS: ABG Base Excess 1.6 MMOL/L (-2.5-2.5); ABG HCO3 25.7 MMOL/L (20-26); ABG Oxygen Saturation 95.6 % (95-100); ABG PCO2 40.6 MM HG (35-48); ABG PH 7.417 (7.35-7.45); ABG PO2 83.9 MM HG (80-95); ABG TCO2 21.9 MMOL/L (23-27); Allen Test Positive; Pt O2 Delivery Device Ventilator
[2018-06-10] MEDS: methylPREDNISolone SOD SUC 40 MG/1 ML VIAL IV SCH ×4 (04:27→20:43)
[2018-06-10] MEDS: MEROPENEM 1,000 MG in SODIUM CHLORIDE 0.9% 100 ML IV SCH ×2 (04:27→10:43)
[2018-06-10] MEDS: DEXMEDETOMIDINE 400 MCG in SODIUM CHLORIDE 0.9% 96 ML IV PRN ×3 (04:35→21:58)
[2018-06-10 04:56] LABS: Calcium 8.6 MG/DL (8.5-10.1); Osmolality,Calculated 300.1 MOS/KG (273-304)
[2018-06-10 05:00] LABS: Prealbumin 38.7 MG/DL (20-40)
[2018-06-10] MEDS: ARFORMOTEROL 15 MCG/2 ML NEB RESP TX SCH ×2 (07:26→19:19)
[2018-06-10] MEDS: ROSUVASTATIN 20 MG TABLET PO SCH (09:36)
[2018-06-10] MEDS: ASPIRIN CHEW 81 MG TABLET PO SCH (09:36)
[2018-06-10] MEDS: FUROSEMIDE 40 MG/4 ML VIAL IV SCH (09:37)
[2018-06-10] MEDS: AMIODARONE 200 MG TABLET PO SCH (09:39)
[2018-06-10] MEDS: PANTOPRAZOLE 40 MG VIAL IV SCH (09:40)
[2018-06-10] MEDS: POTASSIUM CHLORIDE 20 MEQ/15 ML UDCUP PER TUBE SCH ×2 (09:40→20:44)
[2018-06-10] MEDS: NYSTATIN 500,000 UNIT/5 ML UDCUP PO SCH ×2 (09:40→20:43)
[2018-06-10] MEDS: ISOSORBIDE DINITRATE 10 MG TABLET PO SCH ×3 (09:43→20:43)
[2018-06-10] MEDS: FLUCONAZOLE INJ 400 MG in PREMIX 1 EACH IV SCH (10:42)
[2018-06-10] MEDS: ENOXAPARIN 40 MG/0.4 ML SYRINGE SUBCUT SCH (14:28)
[2018-06-10] MEDS: FAT EMULSION 20% 250 ML IV SCH (14:29)
[2018-06-10] MEDS: [UNRECOGNIZED DRUG - OTHER] IV SCH (18:00)
[2018-06-10] MEDS: TRACE ELEMENTS IV SCH (18:00)
[2018-06-10] MEDS: ELECTROLYTE IV SCH (18:00)
[2018-06-10] MEDS: CEPHALEXIN 50 MG/ML 100 ML/BOTTLE PO SCH ×2 (18:02→20:43)
[2018-06-11] MEDS: INSULIN REGULAR 100 UNIT/ML SUBCUT SCH ×4 (00:16→17:51)
[2018-06-11] MEDS: METOCLOPRAMIDE 10 MG/2 ML VIAL IV SCH ×3 (00:18→11:52)
[2018-06-11] MEDS: LORazepam 2 MG/1 ML VIAL IV PRN ×2 (01:50→16:35)
[2018-06-11] MEDS: MORPHINE 4 MG/1 ML VIAL IV PRN (01:50)
[2018-06-11] MEDS: ALBUTEROL/IPRATROPIUM 3 ML NEB RESP TX SCH ×4 (02:11→20:35)
[2018-06-11] MEDS: ACETYLCYSTEINE 20% 800 MG/4 ML VIAL RESP TX SCH ×4 (02:11→20:35)
[2018-06-11] MEDS: DEXMEDETOMIDINE 400 MCG in SODIUM CHLORIDE 0.9% 96 ML IV PRN ×3 (03:04→20:00)
[2018-06-11 04:32] LABS: ABG Base Excess -0.4 MMOL/L (-2.5-2.5); ABG Oxygen Saturation 92.3 % (95-100); ABG PCO2 42.7 MM HG (35-48); ABG PH 7.376 (7.35-7.45); ABG TCO2 21.2 MMOL/L (23-27)
[2018-06-11] MEDS: methylPREDNISolone SOD SUC 40 MG/1 ML VIAL IV SCH ×4 (04:34→21:43)
[2018-06-11 04:49] LABS: Basophils % 0.2 % (0.0-0.8); Hematocrit 46.9 VOL% (42.0-52.0); Hemoglobin 15.3 GM/DL (14.0-18.0); Immature Granulocytes % 0.7 %; Immature Granulocytes Absolute 0.08 #; Lymphocytes # 0.5 10*3/uL (1.4-4.0); Lymphocytes % 4.6 % (21.2-54.2); Mean Corpuscular HGB Conc 32.6 GM/DL (32-36); Mean Corpuscular Hemoglobin 31 PG (27-34); Mean Corpuscular Volume 96.1 FL (87-102); Mean Platelet Volume 11.4 FL (9.6-12.0); Monocytes # 0.7 10*3/uL (0.11-0.8); Monocytes % 6.4 % (1.7-12.7); Neutrophils # 9.7 10*3/uL (1.4-7.4); Neutrophils % 88.1 % (38.7-73.9); Platelet Count 102 T/CUMM (130-400); Red Blood Count 4.88 MC/CUMM (3.8-5.5); Red Cell Distribution Width 16.2 % (9.3-17.3)
[2018-06-11 05:16] LABS: Calcium 8.6 MG/DL (8.5-10.1); Potassium 4.1 MMOL/L (3.5-5.1)
[2018-06-11 05:17] LABS: Lymphocytes 3 % (20-55); Platelet Estimate Adequate; Polychromasia Few; Segmented Neutrophils 93 % (50-85); Total Cells Counted 100
[2018-06-11] MEDS: ARFORMOTEROL 15 MCG/2 ML NEB RESP TX SCH ×2 (06:55→20:35)
[2018-06-11] MEDS: PANTOPRAZOLE 40 MG VIAL IV SCH (09:37)
[2018-06-11] MEDS: NYSTATIN 500,000 UNIT/5 ML UDCUP PO SCH ×2 (09:38→21:40)
[2018-06-11] MEDS: ROSUVASTATIN 20 MG TABLET PO SCH (09:38)
[2018-06-11] MEDS: ASPIRIN CHEW 81 MG TABLET PO SCH (09:38)
[2018-06-11] MEDS: FUROSEMIDE 40 MG/4 ML VIAL IV SCH (09:39)
[2018-06-11] MEDS: CEPHALEXIN 50 MG/ML 100 ML/BOTTLE PO SCH ×4 (09:39→21:40)
[2018-06-11] MEDS: AMIODARONE 200 MG TABLET PO SCH (09:39)
[2018-06-11] MEDS: POTASSIUM CHLORIDE 20 MEQ/15 ML UDCUP PER TUBE SCH ×2 (09:40→21:40)
[2018-06-11] MEDS: ISOSORBIDE DINITRATE 10 MG TABLET PO SCH ×3 (09:44→21:40)
[2018-06-11] MEDS: FLUCONAZOLE INJ 400 MG in PREMIX 1 EACH IV SCH (09:48)
[2018-06-11] MEDS ORDERED: DEXTROSE 50% 25 GM/50 ML VIAL IV PRN (12:31)
[2018-06-11] MEDS ORDERED: GLUCAGON 1 MG VIAL IM PRN (12:31)
[2018-06-11] MEDS: ENOXAPARIN 40 MG/0.4 ML SYRINGE SUBCUT SCH (14:15)
[2018-06-11] MEDS: FAT EMULSION 20% 250 ML IV SCH (16:23)
[2018-06-11] MEDS: TRACE ELEMENTS IV SCH (17:50)
[2018-06-11] MEDS: ELECTROLYTE IV SCH (17:50)
[2018-06-11] MEDS: [UNRECOGNIZED DRUG - OTHER] IV SCH (17:50)
[2018-06-12] MEDS: INSULIN REGULAR 100 UNIT/ML SUBCUT SCH ×5 (00:55→23:53)
[2018-06-12] MEDS: DEXMEDETOMIDINE 400 MCG in SODIUM CHLORIDE 0.9% 96 ML IV PRN ×4 (02:14→22:42)
[2018-06-12] MEDS: methylPREDNISolone SOD SUC 40 MG/1 ML VIAL IV SCH ×2 (02:16→15:59)
[2018-06-12] MEDS: ACETYLCYSTEINE 20% 800 MG/4 ML VIAL RESP TX SCH ×4 (03:25→20:18)
[2018-06-12] MEDS: ALBUTEROL/IPRATROPIUM 3 ML NEB RESP TX SCH ×4 (03:25→20:18)
[2018-06-12 04:59] LABS: Basophils % 0.1 % (0.0-0.8); Hematocrit 47.6 VOL% (42.0-52.0); Hemoglobin 15.2 GM/DL (14.0-18.0); Immature Granulocytes % 0.8 %; Immature Granulocytes Absolute 0.09 #; Lymphocytes # 0.5 10*3/uL (1.4-4.0); Lymphocytes % 4.7 % (21.2-54.2); Mean Corpuscular HGB Conc 31.9 GM/DL (32-36); Mean Corpuscular Hemoglobin 31 PG (27-34); Mean Corpuscular Volume 96.6 FL (87-102); Mean Platelet Volume 11.9 FL (9.6-12.0); Monocytes # 0.7 10*3/uL (0.11-0.8); Monocytes % 6.4 % (1.7-12.7); Neutrophils # 9.8 10*3/uL (1.4-7.4); Red Blood Count 4.93 MC/CUMM (3.8-5.5); Red Cell Distribution Width 16.5 % (9.3-17.3); White Blood Count 11.1 T/CUMM (4-12)
[2018-06-12 05:04] LABS: Platelet Count 92 T/CUMM (130-400)
[2018-06-12 05:22] LABS: Platelet Estimate Decreased
[2018-06-12 05:23] LABS: Calcium 8.8 MG/DL (8.5-10.1); Osmolality,Calculated 297.1 MOS/KG (273-304); Potassium 4.5 MMOL/L (3.5-5.1)
[2018-06-12 05:24] LABS: ABG Base Excess 0.7 MMOL/L (-2.5-2.5); ABG HCO3 25.1 MMOL/L (20-26); ABG Oxygen Saturation 95.5 % (95-100); ABG PCO2 39.9 MM HG (35-48); ABG PH 7.417 (7.35-7.45); ABG PO2 78.2 MM HG (80-95); ABG TCO2 26.4 MMOL/L (23-27)
[2018-06-12] MEDS: ARFORMOTEROL 15 MCG/2 ML NEB RESP TX SCH ×2 (07:27→20:18)
[2018-06-12] MEDS: ASPIRIN CHEW 81 MG TABLET PO SCH (09:25)
[2018-06-12] MEDS: NYSTATIN 500,000 UNIT/5 ML UDCUP PO SCH ×2 (09:26→20:18)
[2018-06-12] MEDS: POTASSIUM CHLORIDE 20 MEQ/15 ML UDCUP PER TUBE SCH ×2 (09:26→20:21)
[2018-06-12] MEDS: ROSUVASTATIN 20 MG TABLET PO SCH (09:26)
[2018-06-12] MEDS: AMIODARONE 200 MG TABLET PO SCH (09:26)
[2018-06-12] MEDS: FUROSEMIDE 40 MG/4 ML VIAL IV SCH (09:28)
[2018-06-12] MEDS: CEPHALEXIN 50 MG/ML 100 ML/BOTTLE PO SCH ×4 (09:35→20:21)
[2018-06-12] MEDS: PANTOPRAZOLE 40 MG VIAL IV SCH (09:35)
[2018-06-12] MEDS: ISOSORBIDE DINITRATE 10 MG TABLET PO SCH ×3 (09:35→20:22)
[2018-06-12] MEDS: FLUCONAZOLE INJ 400 MG in PREMIX 1 EACH IV SCH (09:43)
[2018-06-12] MEDS: MORPHINE 4 MG/1 ML VIAL IV PRN ×3 (10:48→21:22)
[2018-06-12] MEDS: LORazepam 2 MG/1 ML VIAL IV PRN ×2 (12:30→20:22)
[2018-06-12] MEDS: ENOXAPARIN 40 MG/0.4 ML SYRINGE SUBCUT SCH (14:17)
[2018-06-12] MEDS: FAT EMULSION 20% 250 ML IV SCH (16:02)
[2018-06-12] MEDS: [UNRECOGNIZED DRUG - OTHER] IV SCH (18:04)
[2018-06-12] MEDS: ELECTROLYTE IV SCH (18:04)
[2018-06-12] MEDS: TRACE ELEMENTS IV SCH (18:04)
[2018-06-13] MEDS: ALBUTEROL/IPRATROPIUM 3 ML NEB RESP TX SCH ×4 (00:41→19:45)
[2018-06-13] MEDS: LORazepam 2 MG/1 ML VIAL IV PRN ×5 (00:44→20:57)
[2018-06-13] MEDS: MORPHINE 4 MG/1 ML VIAL IV PRN ×2 (00:45→04:06)
[2018-06-13] MEDS: methylPREDNISolone SOD SUC 40 MG/1 ML VIAL IV SCH (02:25)
[2018-06-13 03:39] LABS: ABG Base Excess 0.9 MMOL/L (-2.5-2.5); ABG HCO3 25.2 MMOL/L (20-26); ABG Oxygen Saturation 95.3 % (95-100); ABG PCO2 47.8 MM HG (35-48); ABG PH 7.363 (7.35-7.45); ABG PO2 79.1 MM HG (80-95); ABG TCO2 23.1 MMOL/L (23-27); Allen Test Positive; Pt O2 Delivery Device Ventilator
[2018-06-13 04:06] LABS: Basophils % 0.1 % (0.0-0.8); Hematocrit 46.7 VOL% (42.0-52.0); Immature Granulocytes % 0.7 %; Immature Granulocytes Absolute 0.08 #; Lymphocytes # 0.4 10*3/uL (1.4-4.0); Lymphocytes % 3.6 % (21.2-54.2); Mean Corpuscular HGB Conc 32.1 GM/DL (32-36); Mean Corpuscular Hemoglobin 31 PG (27-34); Mean Corpuscular Volume 97.9 FL (87-102); Mean Platelet Volume 11.8 FL (9.6-12.0); Monocytes # 0.8 10*3/uL (0.11-0.8); Monocytes % 6.3 % (1.7-12.7); Neutrophils # 10.8 10*3/uL (1.4-7.4); Neutrophils % 89.3 % (38.7-73.9); Red Blood Count 4.77 MC/CUMM (3.8-5.5); Red Cell Distribution Width 16.4 % (9.3-17.3); White Blood Count 12.1 T/CUMM (4-12)
[2018-06-13 04:12] LABS: Calcium 8.3 MG/DL (8.5-10.1); Osmolality,Calculated 296.1 MOS/KG (273-304); Potassium 4.5 MMOL/L (3.5-5.1)
[2018-06-13] MEDS: DEXMEDETOMIDINE 400 MCG in SODIUM CHLORIDE 0.9% 96 ML IV PRN ×4 (04:20→19:19)
[2018-06-13 04:21] LABS: Platelet Count 74 T/CUMM (130-400)
[2018-06-13 04:22] LABS: Prealbumin 44.9 MG/DL (20-40)
[2018-06-13 05:00] LABS: Hypochromasia 1+; Lymphocytes 2 % (20-55); Platelet Estimate Decreased; Segmented Neutrophils 91 % (50-85); Total Cells Counted 100
[2018-06-13] MEDS: INSULIN REGULAR 100 UNIT/ML SUBCUT SCH ×4 (06:26→23:48)
[2018-06-13] MEDS: ARFORMOTEROL 15 MCG/2 ML NEB RESP TX SCH ×2 (08:02→19:45)
[2018-06-13] MEDS: ROSUVASTATIN 20 MG TABLET PO SCH (08:26)
[2018-06-13] MEDS: AMIODARONE 200 MG TABLET PO SCH (08:26)
[2018-06-13] MEDS: NYSTATIN 500,000 UNIT/5 ML UDCUP PO SCH ×2 (08:26→20:43)
[2018-06-13] MEDS: ASPIRIN CHEW 81 MG TABLET PO SCH (08:26)
[2018-06-13] MEDS: POTASSIUM CHLORIDE 20 MEQ/15 ML UDCUP PER TUBE SCH ×2 (08:31→20:43)
[2018-06-13] MEDS: FUROSEMIDE 40 MG/4 ML VIAL IV SCH (08:32)
[2018-06-13] MEDS: ISOSORBIDE DINITRATE 10 MG TABLET PO SCH ×3 (08:36→20:44)
[2018-06-13] MEDS: CEPHALEXIN 50 MG/ML 100 ML/BOTTLE PO SCH ×4 (08:37→20:43)
[2018-06-13] MEDS: FLUCONAZOLE INJ 400 MG in PREMIX 1 EACH IV SCH (09:22)
[2018-06-13] MEDS: FAT EMULSION 20% 250 ML IV SCH (13:50)
[2018-06-13] MEDS: TRACE ELEMENTS IV SCH (16:59)
[2018-06-13] MEDS: [UNRECOGNIZED DRUG - OTHER] IV SCH (16:59)
[2018-06-13] MEDS: ELECTROLYTE IV SCH (16:59)
[2018-06-13] MEDS: MIDAZOLAM 100 MG in SODIUM CHLORIDE 0.9% 80 ML IV PRN (20:11)
[2018-06-13] MEDS ORDERED: PROPOFOL 1,000 MG/100 ML BOTTLE IV ONE (20:59)
[2018-06-13] MEDS: PROPOFOL 1,000 MG/100 ML BOTTLE IV SCH ×2 (21:08→23:48)
[2018-06-14] MEDS: ALBUTEROL/IPRATROPIUM 3 ML NEB RESP TX SCH ×4 (01:46→18:54)
[2018-06-14 02:39] LABS: Basophils % 0.1 % (0.0-0.8); Eosinophils # 0.1 10*3/uL (0.0-0.87); Eosinophils % 0.5 % (0.00-10.9); Hematocrit 49.5 VOL% (42.0-52.0); Hemoglobin 15.8 GM/DL (14.0-18.0); Immature Granulocytes % 0.8 %; Immature Granulocytes Absolute 0.12 #; Lymphocytes # 0.9 10*3/uL (1.4-4.0); Lymphocytes % 5.5 % (21.2-54.2); Mean Corpuscular HGB Conc 31.9 GM/DL (32-36); Mean Corpuscular Hemoglobin 31 PG (27-34); Mean Corpuscular Volume 97.2 FL (87-102); Monocytes # 1.1 10*3/uL (0.11-0.8); Monocytes % 6.9 % (1.7-12.7); Neutrophils # 13.6 10*3/uL (1.4-7.4); Neutrophils % 86.2 % (38.7-73.9); Red Blood Count 5.09 MC/CUMM (3.8-5.5); Red Cell Distribution Width 16.7 % (9.3-17.3); White Blood Count 15.7 T/CUMM (4-12)
[2018-06-14 02:40] LABS: Platelet Count 65 T/CUMM (130-400)
[2018-06-14 02:41] LABS: Calcium 8.5 MG/DL (8.5-10.1); Osmolality,Calculated 288.4 MOS/KG (273-304); Potassium 4.2 MMOL/L (3.5-5.1)
[2018-06-14] MEDS ORDERED: methylPREDNISolone SOD SUC 40 MG/1 ML VIAL IV SCH (03:00)
[2018-06-14] MEDS: LORazepam 2 MG/1 ML VIAL IV PRN ×2 (03:00→05:37)
[2018-06-14 03:43] LABS: ABG Base Excess 1.6 MMOL/L (-2.5-2.5); ABG HCO3 25.6 MMOL/L (20-26); ABG Oxygen Saturation 92.3 % (95-100); ABG PCO2 44.6 MM HG (35-48); ABG PH 7.391 (7.35-7.45); ABG TCO2 22.6 MMOL/L (23-27); Pt O2 Delivery Device Ventilator
[2018-06-14] MEDS: PROPOFOL 1,000 MG/100 ML BOTTLE IV SCH ×3 (03:55→21:00)
[2018-06-14] MEDS: MIDAZOLAM 100 MG in SODIUM CHLORIDE 0.9% 80 ML IV PRN (04:40)
[2018-06-14] MEDS: INSULIN REGULAR 100 UNIT/ML SUBCUT SCH ×3 (06:32→18:22)
[2018-06-14] MEDS ORDERED: LIDOCAINE 2% 20 ML VIAL RESP TX ONE (07:10)
[2018-06-14] MEDS ORDERED: LIDOCAINE 1% 20 ML VIAL MISC INJ ONE (07:10)
[2018-06-14] MEDS ORDERED: methylPREDNISolone SOD SUC 40 MG/1 ML VIAL ONE (07:19)
[2018-06-14] MEDS ORDERED: SODIUM CHLORIDE 0.9% 1,000 ML IV ONE (07:42)
[2018-06-14] MEDS: ARFORMOTEROL 15 MCG/2 ML NEB RESP TX SCH ×2 (07:46→18:54)
[2018-06-14] MEDS: methylPREDNISolone SOD SUC 40 MG/1 ML VIAL IV SCH ×2 (08:20→13:31)
[2018-06-14] MEDS: CEFEPIME 2,000 MG in SYRINGE 1 EACH IV SCH ×2 (08:20→18:30)
[2018-06-14] MEDS: CLINDAMYCIN INJ 600 MG in PREMIX 1 EACH IV SCH ×2 (08:20→18:01)
[2018-06-14] MEDS ORDERED: PANTOPRAZOLE 40 MG VIAL IV SCH (09:00)
[2018-06-14 09:58] LABS: Albumin 2.5 G/DL (3.4-5.0); Bilirubin,Direct 3.38 MG/DL (0.0-0.20); Bilirubin,Indirect 1.2 MG/DL (0.0-1.0); Bilirubin,Total 4.6 MG/DL (0.2-1.0); Total Protein 6.2 G/DL (6.4-8.3)
[2018-06-14] MEDS: ROSUVASTATIN 20 MG TABLET PO SCH (10:02)
[2018-06-14] MEDS: ACETAMINOPHEN 325 MG TABLET PO PRN (10:02)
[2018-06-14] MEDS: AMIODARONE 200 MG TABLET PO SCH (10:02)
[2018-06-14] MEDS: ASPIRIN CHEW 81 MG TABLET PO SCH (10:02)
[2018-06-14] MEDS: NYSTATIN 500,000 UNIT/5 ML UDCUP PO SCH (10:02)
[2018-06-14] MEDS: POTASSIUM CHLORIDE 20 MEQ/15 ML UDCUP PER TUBE SCH (10:02)
[2018-06-14] MEDS: HALOPERIDOL 5 MG/ML AMP IV SCH ×2 (10:04→13:30)
[2018-06-14] MEDS: ISOSORBIDE DINITRATE 10 MG TABLET PO SCH ×2 (10:20→15:05)
[2018-06-14] MEDS ORDERED: AMIODARONE INJ 150 MG in DEXTROSE 5% 100 ML IV ONE (10:50)
[2018-06-14] MEDS: FUROSEMIDE 40 MG/4 ML VIAL IV SCH (10:59)
[2018-06-14] MEDS: PHENYLEPHRINE DRIP 40 MG/250 ML PREMIX IV PRN ×4 (12:21→20:52)
[2018-06-14] MEDS ORDERED: AMIODARONE INJ 450 MG in DEXTROSE 5% 241 ML IV SCH ×2 (13:30→19:30)
[2018-06-14 14:01] LABS: ABG Base Excess -7.3 MMOL/L (-2.5-2.5); ABG HCO3 18.7 MMOL/L (20-26); ABG Oxygen Saturation 97.4 % (95-100); ABG PCO2 47.6 MM HG (35-48); ABG PH 7.247 (7.35-7.45); ABG TCO2 17.7 MMOL/L (23-27); Allen Test Positive; Pt O2 Delivery Device Ventilator
[2018-06-14] MEDS ORDERED: MAGNESIUM SULF RIDER 2 GM in PREMIX 1 EACH IV ONE (14:56)
[2018-06-14] MEDS ORDERED: NOREPINEPHRINE 8 MG in SODIUM CHLORIDE 0.9% 242 ML IV PRN (17:31)
[2018-06-14] MEDS ORDERED: LIDOCAINE DRIP 2,000 MG/250 ML PREMIX IV ONE (17:37)
[2018-06-14] MEDS: FAT EMULSION 20% 250 ML IV SCH (17:45)
[2018-06-14] MEDS ORDERED: VASOPRESSIN 100 UNITS in SODIUM CHLORIDE 0.9% 95 ML IV SCH (18:00)
[2018-06-14] MEDS ORDERED: LIDOCAINE DRIP 2,000 MG/250 ML PREMIX IV SCH (18:00)
[2018-06-14] MEDS: [UNRECOGNIZED DRUG - OTHER] IV SCH (18:06)
[2018-06-14] MEDS: TRACE ELEMENTS IV SCH (18:06)
[2018-06-14] MEDS: ELECTROLYTE IV SCH (18:06)
[2018-06-14] MEDS ORDERED: NOREPINEPHRINE 4 MG/4 ML VIAL IV ONE (18:27)
[2018-06-14 20:16] LABS: ABG Base Excess -11.5 MMOL/L (-2.5-2.5); ABG HCO3 18.1 MMOL/L (20-26); ABG PCO2 55.2 MM HG (35-48); ABG PO2 89.1 MM HG (80-95); ABG TCO2 19.8 MMOL/L (23-27); Allen Test Positive; Pt O2 Delivery Device Ventilator
[2018-06-14 20:22] LABS: ABG PH 7.134 (7.35-7.45)
[2018-06-14] MEDS ORDERED: MORPHINE 4 MG/1 ML VIAL IV PRN (20:37)
[2018-06-14] MEDS ORDERED: LORazepam 2 MG/1 ML VIAL IV PRN (20:37)
[2018-06-14 22:23] VITALS: BP 67/51
== END 2018-06-14 21:35 | disposition expired | DRG 5 ==
LOC: N.ED 08:29 → SUATTDRO 14:00 → N.EDINP 14:00 → N.5E 15:24 → N.CC 05-27 02:48
PROVIDERS: ADMIT Hospitalist; ATTEND Internal Medicine